=== PATIENT | female | born 1950 | race Caucasian/White ===

== ENCOUNTER → 2017-12-06 | Outpatient (CLI) | payer MEDICARE ==
[~2017-12-06] MED LIST: ACET325 PO; ALBU90OI INH; ASPI325 PO; ATOR10; Antivert25 MG PO; BENZ100A PO; BUSP5 PO; CETI10 PO; CHOLESTEROL MED; CYCL10; DOCU100 PO; DOXY100 PO; FOLI1 PO; HYDACE10A PO; HYDPAM50 PO; Humalog100 UNIT/1 SC; LAMO25 PO; LAMOTRIGINE PO; LEVFLO500 PO; LEVO750 PO; LISI20 PO; LORA1; LORA1 PO; MECL12.5 PO; METF500 PO; MONT4 PO; NAPR500; NAPR500 PO; NICO21TP TOP; NORT10; PRAZ1 PO; PRED20 PO; PRESTIQ PO; ROBITUSSIN NIG237 ML PO; SIMV40 PO
== END ==
LOC: LAB 17:45
DX: L08.89 Other specified local infections of the skin and subcutaneous tissue (principal)
CPT/HCPCS: 87070; 87075; 87077; 87147; 87186; 87205

== ENCOUNTER 2017-12-13 00:24 | Day surgery (SDC) | payer MEDICARE ==
[~2017-12-13 00:24] MED LIST changes: -ACET325 PO; -ALBU90OI INH; -BENZ100A PO; -DOCU100 PO; -FOLI1 PO; -Humalog100 UNIT/1 SC; -LAMO25 PO; -LAMOTRIGINE PO; -LEVO750 PO; -MECL12.5 PO; -MONT4 PO; -NICO21TP TOP; -PRAZ1 PO; -ROBITUSSIN NIG237 ML PO
[2018-08-13] MEDS ORDERED: PRAZ1 PO (17:51)
[2018-08-13] MEDS ORDERED: MONT4 PO (17:52)
[2018-08-13] MEDS ORDERED: ALBU90OI INH (17:52)
[2018-08-13] MEDS ORDERED: LAMOTRIGINE PO (17:53)
[2018-08-13] MEDS ORDERED: FOLI1 PO (22:21)
[2018-08-14] MEDS ORDERED: LAMO25 PO (07:30)
[2018-08-15] MEDS ORDERED: ACET325 PO (19:37)
[2018-08-15] MEDS ORDERED: BENZ100A PO (19:38)
[2018-08-15] MEDS ORDERED: ROBITUSSIN NIG237 ML PO (19:44)
[2018-08-15] MEDS ORDERED: LEVO750 PO (19:45)
[2018-08-15] MEDS ORDERED: DOCU100 PO (19:45)
[2018-08-15] MEDS ORDERED: Humalog100 UNIT/1 SC (19:47)
[2018-08-15] MEDS ORDERED: MECL12.5 PO (19:48)
[2018-08-15] MEDS ORDERED: NICO21TP TOP (19:50)
[2018-08-15] MEDS ORDERED: PRED20 PO (19:51)
== END 2017-12-13 14:16 | disposition home or self-care (01) ==
LOC: WOUND 00:24
PROC: 0JBP0ZZ Excision of Left Lower Leg Subcutaneous Tissue and Fascia, Open Approach (ICD-10-PCS; principal; 2017-12-13)
DX: Z48.00 Encounter for change or removal of nonsurgical wound dressing (principal); S81.052D Open bite, left knee, subsequent encounter; E11.9 Type 2 diabetes mellitus without complications; I10 Essential (primary) hypertension; F17.210 Nicotine dependence, cigarettes, uncomplicated; E66.3 Overweight; Z88.0 Allergy status to penicillin; Z88.8 Allergy status to other drugs, medicaments and biological substances; Z88.1 Allergy status to other antibiotic agents; Z68.28 Body mass index [BMI] 28.0-28.9, adult
CPT/HCPCS: 99406; G0463

== ENCOUNTER 2017-12-20 10:54 | Day surgery (SDC) | payer MEDICARE ==
[2018-08-13] MEDS ORDERED: PRAZ1 PO (17:51)
[2018-08-13] MEDS ORDERED: MONT4 PO (17:52)
[2018-08-13] MEDS ORDERED: ALBU90OI INH (17:52)
[2018-08-13] MEDS ORDERED: LAMOTRIGINE PO (17:53)
[2018-08-13] MEDS ORDERED: FOLI1 PO (22:21)
[2018-08-14] MEDS ORDERED: LAMO25 PO (07:30)
[2018-08-15] MEDS ORDERED: ACET325 PO (19:37)
[2018-08-15] MEDS ORDERED: BENZ100A PO (19:38)
[2018-08-15] MEDS ORDERED: ROBITUSSIN NIG237 ML PO (19:44)
[2018-08-15] MEDS ORDERED: DOCU100 PO (19:45)
[2018-08-15] MEDS ORDERED: LEVO750 PO (19:45)
[2018-08-15] MEDS ORDERED: Humalog100 UNIT/1 SC (19:47)
[2018-08-15] MEDS ORDERED: MECL12.5 PO (19:48)
[2018-08-15] MEDS ORDERED: NICO21TP TOP (19:50)
[2018-08-15] MEDS ORDERED: PRED20 PO (19:51)
== END 2017-12-20 22:54 | disposition home or self-care (01) ==
LOC: WOUND 10:54
DX: Z48.00 Encounter for change or removal of nonsurgical wound dressing (principal); L08.89 Other specified local infections of the skin and subcutaneous tissue; S81.002S Unspecified open wound, left knee, sequela; E11.9 Type 2 diabetes mellitus without complications; I10 Essential (primary) hypertension; F17.210 Nicotine dependence, cigarettes, uncomplicated
CPT/HCPCS: G0463

== ENCOUNTER 2017-12-27 10:40 | Day surgery (SDC) | payer MEDICARE ==
[2018-08-13] MEDS ORDERED: PRAZ1 PO (17:51)
[2018-08-13] MEDS ORDERED: ALBU90OI INH (17:52)
[2018-08-13] MEDS ORDERED: MONT4 PO (17:52)
[2018-08-13] MEDS ORDERED: LAMOTRIGINE PO (17:53)
[2018-08-13] MEDS ORDERED: FOLI1 PO (22:21)
[2018-08-14] MEDS ORDERED: LAMO25 PO (07:30)
[2018-08-15] MEDS ORDERED: ACET325 PO (19:37)
[2018-08-15] MEDS ORDERED: BENZ100A PO (19:38)
[2018-08-15] MEDS ORDERED: ROBITUSSIN NIG237 ML PO (19:44)
[2018-08-15] MEDS ORDERED: DOCU100 PO (19:45)
[2018-08-15] MEDS ORDERED: LEVO750 PO (19:45)
[2018-08-15] MEDS ORDERED: Humalog100 UNIT/1 SC (19:47)
[2018-08-15] MEDS ORDERED: MECL12.5 PO (19:48)
[2018-08-15] MEDS ORDERED: NICO21TP TOP (19:50)
[2018-08-15] MEDS ORDERED: PRED20 PO (19:51)
== END 2017-12-27 23:22 | disposition home or self-care (01) ==
LOC: WOUND 10:40
DX: Z48.00 Encounter for change or removal of nonsurgical wound dressing (principal); L08.89 Other specified local infections of the skin and subcutaneous tissue; S81.002A Unspecified open wound, left knee, initial encounter; E11.9 Type 2 diabetes mellitus without complications; I10 Essential (primary) hypertension; F17.210 Nicotine dependence, cigarettes, uncomplicated
CPT/HCPCS: G0463

== ENCOUNTER 2019-05-22 18:54 | Inpatient (IN) | payer MEDICARE ==
[~2019-05-22] VITALS: Ht 154.9 cm; Wt 75.2 kg
[~2019-05-22 18:54] MED LIST changes: +ACET325 PO; +ALBU90OI INH; +BENZ100A PO; +FOLI1 PO; +Humalog100 UNIT/1 SC; +LAMO25 PO; +LAMOTRIGINE PO; +LEVO750 PO; +LORA.5 PO; -LORA1 PO; +MECL12.5 PO; +MONT10T PO; +NICO21TP TOP; +PRAZ1 PO; +ROBITUSSIN NIG237 ML PO
[2019-05-22 19:15] LABS: BASOPHILS ABSOLUTE AUTO 0.06 K/mm3 (0.00-0.23); BASOPHILS PERCENT AUTO 0 % (0-2); Hematocrit 33.5 % (33.0-51.0); Hemoglobin 10.7 g/dL (11.5-16.0); LYMPHOCYTES ABSOLUTE AUTO 1.77 K/mm3 (0.84-5.20); LYMPHOCYTES PERCENT AUTO 10 % (21-46); MONOCYTES PERCENT AUTO 3 % (4-13); Mean Corpuscular HGB 28.1 pg (26.0-34.0); Mean Corpuscular HGB Conc 31.9 g/dL (31.5-36.5); Mean Corpuscular Volume 88 fL (80-100); Mean Platelet Volume 9.7 fL (9.1-12.4); Platelet Count 286 K/mm3 (150-400); RDW Coefficient Variation 14.6 % (11.7-14.2); RDW Standard Deviation 47.1 fL (35.1-46.3); Red Blood Cell Count 3.81 M/mm3 (3.80-5.20); White Blood Cell Count 17.79 K/mm3 (4.00-11.30)
[2019-05-22 19:16] LABS: EOSINOPHILS ABSOLUTE AUTO 0.02 K/mm3 (0.00-0.68); EOSINOPHILS PERCENT AUTO 0 % (0-6); IMMATURE GRAN ABSOLUTE AUTO 0.93 K/mm3 (0.00-0.10); IMMATURE GRAN PERCENT AUTO 5 % (0-1); NEUTROPHILS ABSOLUTE AUTO 14.41 K/mm3 (1.96-9.15); NEUTROPHILS PERCENT AUTO 81 % (41-73)
[2019-05-22 19:34] LABS: BAND PERCENT MAN 9 % (0-8); BASOPHILS PERCENT MAN 0 % (0-2); EOSINOPHILS ABSOLUTE MAN 0.17 K/mm3 (0.00-0.68); EOSINOPHILS PERCENT MAN 1 % (0-6); LYMPHOCYTES ABSOLUTE MAN 3.02 K/mm3 (0.84-5.20); LYMPHOCYTES PERCENT MAN 17 % (21-46); METAMYELOCYTE ABSOLUTE MAN 0.17 K/mm3 (0.00-0.00); METAMYELOCYTE PERCENT MAN 1 % (0-0); MONOCYTES ABSOLUTE MAN 0.35 K/mm3 (0.16-1.47); MONOCYTES PERCENT MAN 2 % (4-13); NEUTROPHILS ABSOLUTE MAN 14.05 K/mm3 (1.96-9.15); SEG NEUTROPHILS PERCENT MAN 70 % (41-73); TOTAL CELLS COUNTED 100
[2019-05-22 19:41] LABS: Alanine Aminotransfer (ALT/SGP 15 U/L (12-78); Albumin, Blood 2.7 g/dL (3.4-5.0); Albumin/Globulin Ratio 0.8 (0.8-1.8); Alk Phos 77 U/L (50-136); Anion Gap 6 mmol/L (6-16); Aspartate Aminotrans (AST/SGOT 11 U/L (12-37); Bilirubin, Total 0.4 mg/dL (0.1-1.0); Blood Urea Nitrogen 38 mg/dL (8-24); Bun/Creatinine Ratio 36.2 (12.0-20.0); CO2, Blood 25 mmol/L (21-32); Calcium, Blood 8.6 mg/dL (8.5-10.1); Chloride, Blood 105 mmol/L (98-108); Creatinine, Blood 1.05 mg/dL (0.40-1.00); Globulin, Blood 3.6 g/dL (2.2-4.0); Glomerular Filtration Rate 56 (60-); Glucose, Blood 122 mg/dL (70-99); Potassium, Blood 4.2 mmol/L (3.5-5.5); Sodium, Blood 136 mmol/L (136-145); Total Protein, Blood 6.3 g/dL (6.4-8.2); Troponin I <0.015 ng/mL (0.000-0.040)
[2019-05-22 19:54] LABS: Base Excess Venous -1.6 mmol/L; Bicarbonate Venous 22.7 mmol/L (24.0-30.0); PCO2 Venous 43.1 mmHg (38-42); PO2 Venous 42.9 mmHg (38-42); pH Blood Venous 7.35 (7.34-7.37)
[2019-05-22] MEDS ORDERED: VITAMIN D250000 UNIT PO (20:08)
[2019-05-22] MEDS ORDERED: NAPR500 PO (20:26)
[2019-05-22] MEDS ORDERED: Cyclobenzaprine5 MG PO (20:27)
[2019-05-22] MEDS ORDERED: DOCU100 PO (20:43)
[2019-05-22] MEDS ORDERED: CALCIUM 600 +1 EA10 PO (20:44)
--- NOTE | 2019-05-23 01:45 | NUR ---
ADMISSION PT ARRIVES TO [facility] @ APPROXIMATELY 0130 THIS AM. PT IS AOX4 AND AMBULATES WITH STANDBY ASSIST TO RESTROOM AND HOSPITAL BED. PT WITH MILD DYSPNEA ON EXERTION AROUND ROOM- O2 SATS OF 98% ON 2L VIA NASAL CANNULA. RESPIRATIONS ARE SHALLOW AND PT REPORTS SOME DISCOMFORT IN "LUNGS" WITH DEEP INPIRATION. PT ALSO REPORTING PAIN TO BACK THAT IS CHRONIC. LUNG SOUNDS ARE COARSE THROUGHOUT AND DIMINISHED WITH SOME EXPIRATORY WHEEZES TO RUL. PT REPORTS THAT SHE WEARS 2L O2 AT HOME PRN AND IS SUPPOSED TO WEAR A CPAP AT NIGHT THAT SHE IS UNABLE TO TOLERATE. PT ORIENTED TO ROOM AND CALL LIGHT SYSTEM. ENCOURAGED TO CALL FOR ASSISTANCE AND NEEDS. WILL CONTINUE WITH ADMISSION AND MONITORING. BED IN LOW POSITION, CALL LIGHT IN REACH.
--- NOTE | 2019-05-23 02:00 | NUR ---
PROVIDER CONTACTED PT WITH INCREASED LACTIC ACID OF 3.6 THAT WAS CALLED TO SHREDDER TENDER PEAT PRIOR TO PATIENT ARRIVAL. PT ALOS REPORTING INCREASING BACK PAIN THAT IS MANAGED WITH MEDICATION AT HOME. DR FRANKS CONTACTED AND INFORMED OF LACTIC ACID RESULTS- NO ORDERS RECEIVED FOR THIS. ORDERS RECEIVED FOR PAIN MEDICATION. WILL INPUT ORDERS AND ADMINISTER.
[2019-05-23] MEDS ORDERED: CALCIUM CIT 311 EACH PO ×2 (02:47→02:48)
[2019-05-23 04:21] LABS: BASOPHILS ABSOLUTE AUTO 0.04 K/mm3 (0.00-0.23); BASOPHILS PERCENT AUTO 0 % (0-2); Hematocrit 31.9 % (33.0-51.0); Hemoglobin 9.9 g/dL (11.5-16.0); LYMPHOCYTES ABSOLUTE AUTO 1.11 K/mm3 (0.84-5.20); LYMPHOCYTES PERCENT AUTO 10 % (21-46); MONOCYTES ABSOLUTE AUTO 0.37 K/mm3 (0.16-1.47); MONOCYTES PERCENT AUTO 3 % (4-13); Mean Corpuscular HGB 28.3 pg (26.0-34.0); Mean Platelet Volume 10.1 fL (9.1-12.4); Platelet Count 216 K/mm3 (150-400); RDW Coefficient Variation 14.7 % (11.7-14.2); RDW Standard Deviation 49.1 fL (35.1-46.3); White Blood Cell Count 11.68 K/mm3 (4.00-11.30)
[2019-05-23 04:31] LABS: EOSINOPHILS ABSOLUTE AUTO 0.01 K/mm3 (0.00-0.68); EOSINOPHILS PERCENT AUTO 0 % (0-6); IMMATURE GRAN ABSOLUTE AUTO 1.17 K/mm3 (0.00-0.10); IMMATURE GRAN PERCENT AUTO 10 % (0-1); Mean Corpuscular Volume 91 fL (80-100); NEUTROPHILS ABSOLUTE AUTO 8.98 K/mm3 (1.96-9.15); NEUTROPHILS PERCENT AUTO 77 % (41-73)
[2019-05-23 04:39] LABS: Anion Gap 9 mmol/L (6-16); Blood Urea Nitrogen 31 mg/dL (8-24); Bun/Creatinine Ratio 35.2 (12.0-20.0); CO2, Blood 22 mmol/L (21-32); Calcium, Blood 7.9 mg/dL (8.5-10.1); Chloride, Blood 109 mmol/L (98-108); Creatinine, Blood 0.88 mg/dL (0.40-1.00); Glomerular Filtration Rate >60 (60-); Glucose, Blood 138 mg/dL (70-99); Potassium, Blood 4.2 mmol/L (3.5-5.5); Sodium, Blood 140 mmol/L (136-145)
[2019-05-23 05:08] LABS: BAND PERCENT MAN 10 % (0-8); BASOPHILS PERCENT MAN 0 % (0-2); EOSINOPHILS PERCENT MAN 0 % (0-6); LYMPHOCYTES PERCENT MAN 12 % (21-46); MONOCYTES ABSOLUTE MAN 0.23 K/mm3 (0.16-1.47); MONOCYTES PERCENT MAN 2 % (4-13); NEUTROPHILS ABSOLUTE MAN 10.04 K/mm3 (1.96-9.15); SEG NEUTROPHILS PERCENT MAN 76 % (41-73); TOTAL CELLS COUNTED 100
--- NOTE | 2019-05-23 06:07 | NUR ---
SHIFT SUMMARY PT HAS REMAINED AOX4 THROUGHOUT REMAINDER OF SHIFT. VSS. PLEASANT AND COOPERATIVE WITH CARE. PT WITH ANXIETY THIS AM AFTER AMBULATION. CONTINUES TO REPORT PAIN TO BACK AND R LUNG AREA THAT HURTS WHEN PATIENT IS DYSPNEIC. PT REPORTS DECREASE IN PAIN WITH REPOSITIONING AND ORDERED MEDICATIONS- PT PROVIDED WITH KPAD FOR HEAT THERAPY IN ADDITION TO OTHER INTERVENTIONS. PT APPEARS TO BE SLEEPING WITHIN 5 MINUTES OF REPOSITIONING AND HEAT APPLICATION. O2 SATS HAVE REMAINED >90% ON 2L VIA NASAL CANNULA. NO OTHER CHANGES NOTED FROM INITIAL ASSESSMENT. WILL CONTINUE TO MONITOR AND REPORT TO ONCOMING SHIFT RN. BED IN LOW POSITION,CALL LIGHT IN REACH.
--- NOTE | 2019-05-23 07:54 | NUR ---
AM NOTE. ASSUMED CARE OF PT APROX 0700, PT IS A&Ox4 AND SBA IN THE ROOM. PT WAS ADMITTED FOR PNA, PT HAS CHRONIC PAIN ISSUES WELL. PT IS FEBRILE AT 100.2, PT'S SINUS TACH IN THE 100'S, PT'S BP STABLE. L/S COARSE AND DIM T/O, ON 1L NC WITH O2 AT 96%. PT STATES SHE HAS CHEST PAIN WITH BREATHING AND COUGHING. NO EDEMA IS NOTED ON ASSESSMENT. CALL LIGHT IN REACH, BED IS LOCKED AND LOW WILL CONTINUE TO MONITOR.
--- NOTE | 2019-05-23 18:07 | NUR ---
PATIENT HAS HAD COMPLAINTS OF NAUSEA. MEDICATED PER EMAR. FAMILY AT BEDSIDE. SALINE LOCKED AT THIS TIME. EATING MINIMAL AMOUNTS OF FOOD. STATES PASSING GAS, HAS HAD A BM TODAY. NO OTHER ISSUES NOTED.
--- NOTE | 2019-05-24 05:54 | NUR ---
SHIFT SUMMARY PT REPORTS BEING "JUST MISERABLE" TONIGHT. PT IS NAUSEAS FROM ABX, NOT RELIEVED BY ZOFRAN. PO PHENERGAN ORDERED Q6H HAS BEEN WORKING THE BEST. PT IS ALSO VERY PAINFUL, C/O OF PAIN TO ABD, SHOULDERS, AND BACK. ADMINISTERING 50 MCG FENTANYL Q4H PER ORDERS, PROVIDES SOME RELIEF. PT IS ALSO QUITE ANXIOUS, HAS RECIEVED PRN 0.5 MG PO ATIVAN TWICE TONIGHT. TOOK PT ON A WALK AROUND THE HALLS WHICH HELPED RELIEVE ANXIETY AND PT WAS ABLE TO FALL ASLEEP FOR A FEW HRS AFTERWARDS. ABX ADMINISTERED PER ORDERS. NO OTHER CHANGES TO REPORT. WILL CONT TO MONITOR AND PROVIDE CARE UNTIL PRESUMED BY ONCOMING RN.
[2019-05-24 11:42] LABS: Vancomycin, Trough 11.7 ug/mL (5.0-10.0)
[2019-05-24] MEDS ORDERED: PROM25 PO (13:49)
[2019-05-24] MEDS ORDERED: LEVFLO500 PO (13:50)
--- NOTE | 2019-05-24 14:17 | NUR ---
PATIENT DISCHARGED WITH DAUGHTER. MEDS FAXED TO [facility] IN [place]. PATIENT WHEELED OUT IN W/C BY KAVON LEWIS.
== END 2019-05-24 14:11 | disposition home or self-care (01) | DRG 871 ==
LOC: ER 18:54 → PCU 21:16 → MEDS 05-23 15:00
PROVIDERS: Emergency Medicine; Hospitalist; Nurse Practitioner Acute Care; ADMIT Internal Medicine
DX: A40.3 Sepsis due to Streptococcus pneumoniae (principal); R65.20 Severe sepsis without septic shock; J96.21 Acute and chronic respiratory failure with hypoxia; J18.1 Lobar pneumonia, unspecified organism; J44.0 Chronic obstructive pulmonary disease with (acute) lower respiratory infection; E11.9 Type 2 diabetes mellitus without complications; I10 Essential (primary) hypertension; E03.9 Hypothyroidism, unspecified; M79.7 Fibromyalgia; G47.33 Obstructive sleep apnea (adult) (pediatric); F41.1 Generalized anxiety disorder; F32.9 Major depressive disorder, single episode, unspecified; Z87.891 Personal history of nicotine dependence; Z88.0 Allergy status to penicillin; Z88.8 Allergy status to other drugs, medicaments and biological substances; Z79.84 Long term (current) use of oral hypoglycemic drugs; Z79.899 Other long term (current) drug therapy
CPT/HCPCS: 36415; 71046; 80048; 80053; 80202; 82803; 82947; 83605; 83735; 83880; 84484; 85025; 87040; 87186; 87449; 93005; 93010; 94640; 94760; 96365; 96366; 96367; 96372-59; 96375; 96376; 99285-25; A9270; J0696; J1170; J1650; J1956; J2405; J3010; J3370; J7030; J7050

== ENCOUNTER → 2019-08-23 | Outpatient (CLI) | payer MEDICARE ==
[~2019-08-23] MED LIST changes: +CALCIUM 600 +1 EA10 PO; +CALCIUM CIT 311 EACH PO; +Cyclobenzaprine5 MG PO; +DOCU100 PO; +PROM25 PO; +VITAMIN D250000 UNIT PO
[2019-08-25 14:38] LABS: Stool Occult Bld Immuno 1 Positive (NEGATIVE)
== END | disposition home or self-care (01) ==
LOC: LAB SHORT 15:00 → LAB 15:00
PROVIDERS: Nurse Practitioner Family
DX: Z12.11 Encounter for screening for malignant neoplasm of colon (principal)
CPT/HCPCS: G0328

== ENCOUNTER 2019-11-23 11:18 | Day surgery (SDC) | payer MEDICARE ==
[~2019-11-23] VITALS: Ht 154.9 cm; Wt 73.0 kg
[~2019-11-23 11:18] MED LIST changes: +BUPROPION XL150 M1 PO; +CYCL10 PO; +Duoneb 2.5-0.5 M3 ML INH; +Flovent 220 Ora12 GM INH; +LIDO700A20 TOP; +Lamictal150 MG; +OYSTER SHELL 51 EACH PO; +Ventolin/Prove6.7 GM INH; +ZYRTEC10 M2 PO; +Zocor40 MG PO
== END 2019-11-23 14:08 | disposition home or self-care (01) ==
LOC: ORSCSDS 11:18
PROVIDERS: Internal Medicine Gastroenterology
PROC: 0DJD8ZZ Inspection of Lower Intestinal Tract, Via Natural or Artificial Opening Endoscopic (ICD-10-PCS; principal; 2019-11-23 12:30)
DX: K92.1 Melena (principal); K57.30 Diverticulosis of large intestine without perforation or abscess without bleeding; K64.8 Other hemorrhoids; F41.8 Other specified anxiety disorders; E78.5 Hyperlipidemia, unspecified; D64.9 Anemia, unspecified; I10 Essential (primary) hypertension; E66.9 Obesity, unspecified; Z68.30 Body mass index [BMI] 30.0-30.9, adult; J44.9 Chronic obstructive pulmonary disease, unspecified; Z99.81 Dependence on supplemental oxygen; E11.9 Type 2 diabetes mellitus without complications; Z87.891 Personal history of nicotine dependence; Z79.82 Long term (current) use of aspirin; Z79.84 Long term (current) use of oral hypoglycemic drugs; Z79.899 Other long term (current) drug therapy
CPT/HCPCS: 82947; J2704; J7120

== ENCOUNTER → 2021-11-13 | Outpatient (CLI) | payer MEDICARE ==
[2021-11-13 15:12] LABS: Creatinine, Urine Random 53.1 mg/dL (27.00-270.00)
[2021-11-13 15:27] LABS: Microalb/Creat Ratio UR, Rand 36.158 mg/g (0.000-30.000); Microalbumin, Random Urine 19.2 mg/L (0.000-20.000)
[2021-11-13 15:42] LABS: BASOPHILS ABSOLUTE AUTO 0.02 K/mm3 (0.00-0.23); BASOPHILS PERCENT AUTO 0 % (0-2); EOSINOPHILS ABSOLUTE AUTO 0.15 K/mm3 (0.00-0.68); EOSINOPHILS PERCENT AUTO 2 % (0-6); Hematocrit 41.4 % (33.0-51.0); Hemoglobin 13.1 g/dL (11.5-16.0); IMMATURE GRAN ABSOLUTE AUTO 0.01 K/mm3 (0.00-0.10); IMMATURE GRAN PERCENT AUTO 0 % (0-1); LYMPHOCYTES ABSOLUTE AUTO 2.97 K/mm3 (0.84-5.20); LYMPHOCYTES PERCENT AUTO 44 % (21-46); MONOCYTES PERCENT AUTO 5 % (4-13); Mean Corpuscular HGB 26.6 pg (26.0-34.0); Mean Corpuscular HGB Conc 31.6 g/dL (31.5-36.5); Mean Corpuscular Volume 84 fL (80-100); Mean Platelet Volume 10.7 fL (9.1-12.4); NEUTROPHILS ABSOLUTE AUTO 3.27 K/mm3 (1.96-9.15); NEUTROPHILS PERCENT AUTO 49 % (41-73); Platelet Count 319 K/mm3 (150-400); RDW Coefficient Variation 14.2 % (11.7-14.2); RDW Standard Deviation 43.6 fL (35.1-46.3); Red Blood Cell Count 4.93 M/mm3 (3.80-5.20); White Blood Cell Count 6.72 K/mm3 (4.00-11.30)
[2021-11-14 09:10] LABS: A/G RATIO 1.6 (1.2-2.2); ALKALINE PHOSPHATASE, S 98 IU/L (44-121); ALT (SGPT) 15 IU/L (0-32); AST (SGOT) 17 IU/L (0-40); BILIRUBIN, TOTAL 0.3 mg/dL (0.0-1.2); BUN 8 mg/dL (8-27); BUN/CREATININE RATIO 13 (12-28); CALCIUM, SERUM 9.3 mg/dL (8.7-10.3); CARBON DIOXIDE, TOTAL 29 mmol/L (20-29); CHLORIDE, SERUM 100 mmol/L (96-106); CHOLESTEROL, TOTAL 222 mg/dL (100-199); CREATININE, SERUM 0.64 mg/dL (0.57-1.00); EGFR IF AFRICN AM 105 (>59); EGFR IF NONAFRICN AM 91 (>59); GLOBULIN, TOTAL 2.6 g/dL (1.5-4.5); GLUCOSE, SERUM 159 mg/dL (65-99); HDL CHOLESTEROL 37 mg/dL (>39); LDL CHOLESTEROL CALC 134 mg/dL (0-99); POTASSIUM, SERUM 4.2 mmol/L (3.5-5.2); PROTEIN, TOTAL, SERUM 6.8 g/dL (6.0-8.5); SODIUM, SERUM 142 mmol/L (134-144); TRIGLYCERIDES 281 mg/dL (0-149); VLDL CHOLESTEROL CAL 51 mg/dL (5-40)
[2021-11-14 19:10] LABS: T-TRANSGLUTAMINASE (TTG) IGA 4 U/mL (0-3); T-TRANSGLUTAMINASE (TTG) IGG <2 U/mL (0-5)
== END ==
LOC: LAB SHORT 12:21
PROVIDERS: Family Medicine
DX: E11.40 Type 2 diabetes mellitus with diabetic neuropathy, unspecified (principal); Z79.84 Long term (current) use of oral hypoglycemic drugs
CPT/HCPCS: 80053; 80061; 82043; 82570; 83036; 83516; 83690; 84443; 85025; 86364

== ENCOUNTER 2022-06-30 16:27 | Inpatient (IN) | payer OTHER ==
[~2022-06-30] VITALS: Ht 154.9 cm; Wt 79.5 kg
[2022-06-30 17:31] LABS: Hemoglobin 11.8 g/dL (11.5-16.0); Mean Corpuscular HGB 27.3 pg (26.0-34.0); Mean Corpuscular HGB Conc 31.9 g/dL (31.5-36.5); Mean Corpuscular Volume 86 fL (80-100); Mean Platelet Volume 10.3 fL (9.1-12.4); Platelet Count 263 K/mm3 (150-400); RDW Coefficient Variation 13.8 % (11.7-14.2); RDW Standard Deviation 43.3 fL (35.1-46.3); Red Blood Cell Count 4.33 M/mm3 (3.80-5.20); White Blood Cell Count 8.08 K/mm3 (4.00-11.30)
[2022-06-30 17:44] LABS: Albumin, Blood 2.7 g/dL (3.4-5.0); Albumin/Globulin Ratio 0.8 (0.8-1.8); Bilirubin, Total 0.5 mg/dL (0.1-1.0); Bun/Creatinine Ratio 14.8 (12.0-20.0); Calcium, Blood 8.6 mg/dL (8.5-10.1); Creatinine, Blood 1.35 mg/dL (0.40-1.00); Globulin, Blood 3.2 g/dL (2.2-4.0); Magnesium, Blood 1.2 mg/dL (1.6-2.4); Total Protein, Blood 5.9 g/dL (6.4-8.2)
[2022-06-30 18:20] LABS: BAND PERCENT MAN 26 % (0-8); BASOPHILS ABSOLUTE MAN 0.08 K/mm3 (0.00-0.23); BASOPHILS PERCENT MAN 1 % (0-2); EOSINOPHILS PERCENT MAN 0 % (0-6); LYMPHOCYTES ABSOLUTE MAN 1.21 K/mm3 (0.84-5.20); LYMPHOCYTES PERCENT MAN 15 % (21-46); METAMYELOCYTE ABSOLUTE MAN 0.24 K/mm3 (0.00-0.00); METAMYELOCYTE PERCENT MAN 3 % (0-0); MONOCYTES ABSOLUTE MAN 0.64 K/mm3 (0.16-1.47); MONOCYTES PERCENT MAN 8 % (4-13); NEUTROPHILS ABSOLUTE MAN 5.89 K/mm3 (1.96-9.15); SEG NEUTROPHILS PERCENT MAN 47 % (41-73); TOTAL CELLS COUNTED 100
--- NOTE | 2022-06-30 21:14 | NUR ---
TRANSFER NOTE REPORT FROM LIANE MASON RN. PT TO ROOM BY JUAN MANUEL AND SLID TO BED. ORIENTED TO ROOM AND CALL LIGHT. CALL LIGHT IN REACH, BED IN LOWEST POSITION.
[2022-06-30 21:31] LABS: Influenza A, PCR NEGATIVE (NEGATIVE); Influenza B, PCR NEGATIVE (NEGATIVE); Resp Syncytial Virus, PCR NEGATIVE (NEGATIVE); SARS-Cov-2 (COVID-19) PCR, MMC NEGATIVE (NEGATIVE)
--- NOTE | 2022-07-01 01:38 | NUR ---
PT REFUSING TO WEAR CPAP DUE TO HER HISTORY OF CLAUSTROPHOBIA. SATTING >92% ON RA. NO WORSENING SOB AT THIS TIME.
[2022-07-01 02:39] LABS: Hemoglobin 11.1 g/dL (11.5-16.0); Mean Corpuscular HGB 27.1 pg (26.0-34.0); Mean Corpuscular HGB Conc 31.7 g/dL (31.5-36.5); Mean Corpuscular Volume 86 fL (80-100); Mean Platelet Volume 9.9 fL (9.1-12.4); Platelet Count 243 K/mm3 (150-400); RDW Standard Deviation 43.8 fL (35.1-46.3); Red Blood Cell Count 4.09 M/mm3 (3.80-5.20); White Blood Cell Count 9.16 K/mm3 (4.00-11.30)
[2022-07-01 02:55] LABS: Bun/Creatinine Ratio 21.3 (12.0-20.0); Creatinine, Blood 0.99 mg/dL (0.40-1.00); Potassium, Blood 4.6 mmol/L (3.5-5.5)
[2022-07-01 03:24] LABS: BAND PERCENT MAN 40 % (0-8); BASOPHILS PERCENT MAN 0 % (0-2); EOSINOPHILS PERCENT MAN 0 % (0-6); LYMPHOCYTES PERCENT MAN 11 % (21-46); METAMYELOCYTE ABSOLUTE MAN 0.09 K/mm3 (0.00-0.00); METAMYELOCYTE PERCENT MAN 1 % (0-0); MONOCYTES ABSOLUTE MAN 0.73 K/mm3 (0.16-1.47); MONOCYTES PERCENT MAN 8 % (4-13); MYELOCYTE ABSOLUTE MAN 0.09 K/mm3 (0.00-0.00); MYELOCYTE PERCENT MAN 1 % (0-0); NEUTROPHILS ABSOLUTE MAN 7.23 K/mm3 (1.96-9.15); SEG NEUTROPHILS PERCENT MAN 39 % (41-73); TOTAL CELLS COUNTED 100
--- NOTE | 2022-07-01 05:28 | NUR ---
COOK MAYONNAISE SUMMARY ADMITTED FOR PNA. PT TROPONIN CONTINUING TO ELEVATE. NO COMPLAINTS OF CHEST PAIN BUT DOES COMPLAIN OF ANXIETY. MANAGED WITH REDIRECTION AND REST AT THIS TIME. SHE HAS SOB ON EXERTION BUT SATTING >92% ON RA. LACTIC ELEVATED - CONTINUING IV FLUIDS. TELE HAS BEEN SINUS TACH THROUGHOUT THE SHIFT. ONE DOSE OF IV ABX GIVEN. IV MAG GIVEN. PT IS ALERT AND ORIENTED. FOLLOWS DIRECTIONS. PAIN TO THE RIGHT LATERAL RIB AREA - MEDICATED X1 - PAIN IS WORSE WHEN MOVING AROUND. CONSULT FOR CARDIOLOGY CALLED FOR THIS MORNING.
[2022-07-01 06:55] LABS: Bicarbonate Venous 23.3 mmol/L (24.0-30.0); PCO2 Venous 32.7 mmHg (38-42); pH Blood Venous 7.44 (7.34-7.37)
--- NOTE | 2022-07-01 08:51 | NUR ---
Pt restless, anxious, and c/o pain in the abdomen and in her back. No dyspnea. Spo2 95% on room air. Blood pressure stable. Given 25 Fentanyl and EKG done, no EKG changes noted. Labs sent for troponin, PTT to start heparin gtt and lactic reflex. Powerglide placed on the left arm; lab had difficulty drawing earlier.
--- NOTE | 2022-07-01 08:53 | NUR ---
Pt is less anxious and less restless at this time. Med student with her. Daughter Ashlee has just arrived at bedside.
[2022-07-01 09:12] LABS: Anti-Xa UFH, PHA Monitoring <0.10 IU/mL; International Normalized Ratio 1.69; Prothrombin Time Results 17.1 Sec (9.7-11.5)
--- NOTE | 2022-07-01 09:50 | NUR ---
Dr. Gonzales here to see the patient at this time. Plan is for Echocardiogram and continue to monitor the patient. Lactic acid noted improved from last check. still waiting on most recent troponin.
--- NOTE | 2022-07-01 10:05 | NUR ---
Assisted up to the bedside commode to have a BM. She tolerated the activity very well.
--- NOTE | 2022-07-01 10:53 | NUR ---
Call to Dr. Forde regarding pt's intermittent hallucinations. Daughter Ashlee reports the pt has had these symptoms when she withdraws from her meds. Pt normally takes ativan 0.5 mg tid as well as fluvoxamine maleate 25 mg.
[2022-07-01] MEDS ORDERED: FLUV50 PO (10:54)
--- NOTE | 2022-07-01 11:44 | NUR ---
The pt denies any alcohol intake. One time CIWA assessment done at Dr. Forde's request. Score is 7. Ativan was given p.o. per new orders.
--- NOTE | 2022-07-01 12:44 | NUR ---
Pt is a little less agitated. Daughter at bedside, calming presence and helpful and supportive of pt. Warm blankets provided as requested, lights in room dimmed. Heart rate 105 , sinus.
--- NOTE | 2022-07-01 13:22 | NUR ---
Pt had another episode of visual hallucinations and confusion, this time witnessed by staff. It lasted only a few minutes. Pt is still agitated, restless. Call to Dr. Edwards and new order received for one time 0.5 mg oral ativan. Daughter remains at bedside. continuous oximetry and telemetry monitoring.
--- NOTE | 2022-07-01 14:13 | NUR ---
Pt is alert and oriented to person, place and date/time. Continues to be restless, anxious. Sitting up in recliner, rocking back and forth, moving arms and legs and repostioning very frequently. Spo2 95% on room air. Heart rate 105, sinus tachycardia without ectopy. Deies any pain, states she is just anxious. STates it is the same level of anxiety that she usually experiences at home.
--- NOTE | 2022-07-01 17:45 | NUR ---
Pt is still occasionally confused, mildly, but mentation much improved her daughter reports since around 4 pm. Her restlessness and anxiety are also slightly better since this morning. Occasionally c/o abdominal pain. She has not had a good appetite today. Multiple times she has mentioned that she wishes she could be less anxious. She has been up to the bedside commode several times to void and twice to have BMs.
[2022-07-02 04:17] LABS: Hematocrit 29.7 % (33.0-51.0); Hemoglobin 9.7 g/dL (11.5-16.0); Mean Corpuscular HGB 26.8 pg (26.0-34.0); Mean Corpuscular HGB Conc 32.7 g/dL (31.5-36.5); Mean Corpuscular Volume 82 fL (80-100); Platelet Count 251 K/mm3 (150-400); RDW Coefficient Variation 13.9 % (11.7-14.2); RDW Standard Deviation 41.5 fL (35.1-46.3); Red Blood Cell Count 3.62 M/mm3 (3.80-5.20)
[2022-07-02 04:39] LABS: Bun/Creatinine Ratio 20.1 (12.0-20.0); Calcium, Blood 8.3 mg/dL (8.5-10.1); Creatinine, Blood 0.7 mg/dL (0.40-1.00); Potassium, Blood 3.7 mmol/L (3.5-5.5)
[2022-07-02 04:49] LABS: BAND PERCENT MAN 18 % (0-8); BASOPHILS ABSOLUTE MAN 0.16 K/mm3 (0.00-0.23); BASOPHILS PERCENT MAN 1 % (0-2); EOSINOPHILS ABSOLUTE MAN 0.16 K/mm3 (0.00-0.68); EOSINOPHILS PERCENT MAN 1 % (0-6); LYMPHOCYTES ABSOLUTE MAN 1.28 K/mm3 (0.84-5.20); LYMPHOCYTES PERCENT MAN 8 % (21-46); METAMYELOCYTE ABSOLUTE MAN 0.16 K/mm3 (0.00-0.00); METAMYELOCYTE PERCENT MAN 1 % (0-0); MONOCYTES ABSOLUTE MAN 0.64 K/mm3 (0.16-1.47); MONOCYTES PERCENT MAN 4 % (4-13); MYELOCYTE ABSOLUTE MAN 0.16 K/mm3 (0.00-0.00); MYELOCYTE PERCENT MAN 1 % (0-0); NEUTROPHILS ABSOLUTE MAN 13.44 K/mm3 (1.96-9.15); SEG NEUTROPHILS PERCENT MAN 66 % (41-73); TOTAL CELLS COUNTED 100
--- NOTE | 2022-07-02 05:05 | NUR ---
VERIFIED HEPARIN WITH ALLI BRAUN
--- NOTE | 2022-07-02 06:30 | NUR ---
SHIFT SUMMARY PT HAD A DIFFICULT NIGHT WITH INCREASING CONFUSION AND RESTLESSNESS. PT IS ACTIVILY HAVING AUDITORY VISUAL, AND TACTILE HALLUCINATIONS WHICH HAVE SEEM TO INCREASE THROUGH OUT SHIFT. PT WAS AWARE THEY WERE HALLUCINATING STARTING MY SHIFT NOW PT IS AGUMENTIVE ABOT ORRIENTATION QUESTIONS. PT HAD A PT OF NAUSE AND VOMITING. THINKL RELATED TO FENT ADMIN. IS PT WITHDRAWING FROM SOMETHING OTHER THEN BENZOS BECAUSE SIMPTOMS ARE INCREASING EVEN WITH HOME ATIVAN DOSE. IM ALSO CONCERNED THE FENT PRN DOSES MIGHT BE INCREASING DELERIUM. WILL REPORT OFF TH ON COMING RN.
--- NOTE | 2022-07-02 07:50 | NUR ---
SPOKE WITH DR. EARL THIS MORNING. PATIENT DOES NOT NEED STRESS TEST AND OKAY TO EAT.
--- NOTE | 2022-07-02 11:00 | NUR ---
AM NOTE: PATIENT VERY CONFUSED, ANXIOUS, AND AGGITATED. ABLE TO ANSWER ALL ORIENTING QUESTIONS, YET TALKING TO PEOPLE THAT ARE NOT IN THE ROOM, AND SAYING NONSENSICAL STATEMENTS. CONSTANTLY UP AND DOWN, NOT ABLE TO SETTLE OR REST. BED ALARM IN PLACE. GRANDDAUGHTER AT BEDSIDE. THIS RN CALLED DR. ROBERTO TO UPDATE ON ANXIOUS STATE. NO NEW ORDERS FOR THIS RN TO PLACE. ON ROOM AIR LUNGS SOUNDING CLEAR AND DIM, STARTS TO GET WHEEZY WITH ANXIETY AND AGGITATION. RESPIRATORY IN FOR BREATHING TREATMENTS. TELE SHOWING SR-ST WITH HR 90-110'S. DENIES CHEST PAIN/PRESSURE. BP STABLE. NO SIGNS OF EDEMA. HEPARIN GTT INFUSING. CARDIOLOGY IN TO SEE PATIENT. MED MANAGE. WILL PLAN TO BE ON HEPARIN GTT FOR [address] EARL. UP TO BSC. DENIES ABDOMINAL PAIN. ONE EPISODE OF EMISIS THIS AM WHILE EATING BREAKFAST. DENIES NEEDS FOR ZOFRAN. SMALL FREQUENT BOWL MOVEMENTS THAT ARE DARK/GREEN/BLACK. OCCULT STOOL SAMPLE SENT. LR INFUSING AT 100 ML/HR. ACHS BLOOD SUGAR CHECKS. CALL LIGHT IN REACH. SAFETY ALARMS IN PLACE. WILL CONTINUE TO MONITOR.
--- NOTE | 2022-07-02 12:49 | NUR ---
PATIENT HAS CALMED DOWN AND ANXIETY BETTER CONTROLLED WITH ADDITIONAL 1MG PO DOSE OF ATIVAN X1 THIS AFTERNOON. PATIENT REMAINS CONFUSED, TALKING TO SELF AND HAVING HALLUCINATIONS. BED ALARM IN PLACE. NOT USING CALL LIGHT. SETTING BED ALARM OFF CONTINUALLY. THIS RN SITTING OUTSIDE OF ROOM TO WATCH PATIENT AND BE CLOSER. LR AND HEPARIN CONTINUE TO INFUSE. VERY MINIMAL URINE OUTPUT THIS SHIFT, BLADDER SCAN DONE ONLY SHOWING 80 ML. WILL CONTINUE TO MONITOR.
[2022-07-02 13:23] LABS: Stool Occult Blood Guaiac 1 Pos (Neg)
--- NOTE | 2022-07-02 13:29 | NUR ---
SPOKE WITH DR. ROBERTO REGARDING STOOL OCCULT RESULTS. NO NEW ORDERS FOR THIS RN AT THIS TIME. ALSO UPDATED ON MENTATION AND CONFUSION. NO NEW ORDERS. THIS RN WILL CONTINUE TO MONITOR. PATIENT CALLING OUT FOR FAMILY MEMEBERS AND IRRITATED AT STAFF WHEN REORIENTING. BED ALARM IN PLACE. WILL CONTINUE TO MONITOR.
--- NOTE | 2022-07-02 16:17 | NUR ---
PATIENT NOT ABLE TO REST, REMAINS CONFUSED, AGGITATED, AND HALLUCINATING. TRYING TO GET OUT OF BED MULTIPLE TIMES. CALL PLACED TO DR. CHAUDHRY, NEW ORDERS FOR SEROQUEL. WILL ADMINISTER AND CONTINUE TO MONITOR. DAUGHTER DANIEL CALLED BACK AND UPDATED. BED ALARM REMAINS ON. WILL CONTINUE TO MONITOR.
--- NOTE | 2022-07-02 18:22 | NUR ---
SHIFT SUMMARY: SEE PREVIOUS NOTES FOR UPDATES THROUGHOUT SHIFT. PATIENT REMAINS CONFUSED, HALLUCINATING AND TRYING TO GET OUT OF BED, BED ALARM IN PLACE. PO SEROQUEL GIVEN WITH LITTLE EFFECT. PATIENT REMAINS AGGITATED WITH STAFF WHEN HELPING GET BACK IN BED. TALKING ABOUT PEOPLE THAT ARE NOT IN ROOM AND DISCUSSING DOGS AND CATS THAT ARE NOT IN ROOM WELL. REMAINS ON ROOM AIR. TELE CONTINUES TO SHOW SR-ST. WITH HR 90-110'S. HEPARIN DRIP CONTINUES WELL LR INFUSION. PATIENT DENIES WANTING TO EAT DINNER THIS EVENING. RESPIRATORY IN WITH BREATHING TREATMENTS, ALTHOUGH PATIENT NOT FOLLOWING DIRECTIONS. BP REMAINS STABLE. SPOKE WITH DAUGHTER DANIEL AND UPDATED. WILL CONTINUE TO MONITOR AND REPORT OFF TO ONCOMING RN.
--- NOTE | 2022-07-02 19:21 | NUR ---
UPDATE: PATIENT NOTED TO BE MORE WHEEZY, FINE CRACKLES IN BASES. CALL PLACED BY OPERATIONS DEVELOPER TO DR. CHAUDHRY. ORDERS TO DC FLUIDS AND ONE TIME DOSE IV LASIX. PATIENT STILL TRYING TO GET UP AND NOT FOLLOWING DIRECTIONS. ORDER FOR HIPOLITO VEST. HIPOLITO VEST IN PLACE. REPORTED OFF TO ONCOMING RN. HEPARIN DRIP VERIFIED.
[2022-07-02 21:45] LABS: PCO2 Arterial 39.2 mmHg (35-45); PO2 Arterial 59.8 mmHg (80-100); pH Blood Arterial 7.48 (7.35-7.45)
[2022-07-03 04:24] LABS: BASOPHILS ABSOLUTE AUTO 0.05 K/mm3 (0.00-0.23); BASOPHILS PERCENT AUTO 0 % (0-2); EOSINOPHILS ABSOLUTE AUTO 0.08 K/mm3 (0.00-0.68); EOSINOPHILS PERCENT AUTO 0 % (0-6); Hematocrit 28.4 % (33.0-51.0); Hemoglobin 9.3 g/dL (11.5-16.0); IMMATURE GRAN ABSOLUTE AUTO 0.12 K/mm3 (0.00-0.10); IMMATURE GRAN PERCENT AUTO 1 % (0-1); LYMPHOCYTES ABSOLUTE AUTO 2.32 K/mm3 (0.84-5.20); LYMPHOCYTES PERCENT AUTO 13 % (21-46); MONOCYTES ABSOLUTE AUTO 0.78 K/mm3 (0.16-1.47); MONOCYTES PERCENT AUTO 4 % (4-13); Mean Corpuscular HGB 27.1 pg (26.0-34.0); Mean Corpuscular HGB Conc 32.7 g/dL (31.5-36.5); Mean Corpuscular Volume 83 fL (80-100); Mean Platelet Volume 10.2 fL (9.1-12.4); NEUTROPHILS ABSOLUTE AUTO 14.65 K/mm3 (1.96-9.15); NEUTROPHILS PERCENT AUTO 81 % (41-73); Platelet Count 294 K/mm3 (150-400); RDW Coefficient Variation 14.1 % (11.7-14.2); RDW Standard Deviation 42.9 fL (35.1-46.3); Red Blood Cell Count 3.43 M/mm3 (3.80-5.20)
[2022-07-03 04:42] LABS: Albumin/Globulin Ratio 0.6 (0.8-1.8); Bilirubin, Total 0.3 mg/dL (0.1-1.0); Bun/Creatinine Ratio 25.9 (12.0-20.0); Calcium, Blood 8.1 mg/dL (8.5-10.1); Creatinine, Blood 0.7 mg/dL (0.40-1.00); Globulin, Blood 3.4 g/dL (2.2-4.0); Potassium, Blood 3.5 mmol/L (3.5-5.5); Total Protein, Blood 5.4 g/dL (6.4-8.2)
--- NOTE | 2022-07-03 05:04 | NUR ---
SHIFT SUMMARY PATIENT BEGAN THE SHIFT CONFUSED-ORIENTED TO SELF ONLY. ORIENTATION GRADUALLY IMPROVED T/O SHIFT. NOW ORIENTED TO SELF AND TIME-STATES SHE IS IN [place]. PATIENT IS INCONTINENT AND WITH LASIX GIVEN PRIOR TO SHIFT CHANGE, GREER CATHETER PLACED TO PREVENT SKIN BREAKDOWN. PATIENT WAS ABLE TO DISROBE FROM HIPOLITO VEST RESTRAINT AND BEGAN PULLING AT LINES/CLIMBING OUT OF BED. ORDERS GIVEN FROM DR. HOOPER FOR SWB RESTRAINTS. ALL FOUR BEDRAILS REMAIN UP TO PREVENT BED EXIT AND ACCIDENTAL INJURY. PATIENT DENIED PAIN AND NAUSEA DURING SHIFT-UNABLE TO ADMINISTER PO MEDS D/T CONFUSION AND INABILITY TO FOLLOW COMMANDS/STAY ALERT FOLLOWING PO INTAKE.
--- NOTE | 2022-07-03 09:11 | NUR ---
AM NOTE: PATIENT SLEEPING UPON SHIFT START. WOKEN FOR VITALS AND AM CARES. MUCH MORE ALERT AND LESS CONFUSED THIS AM. ABLE TO TELL ME CLEARLY WHO SHE IS AND RECOGNIZING FAMILY. NOT ABLE TO TELL ME PLACE OR SITUATION. LESS ANXIOUS AND NO SIGNS OF HALLUCINATIONS THIS AM. RESTING QUIETLY AT THIS TIME. RESTRAINTS REMOVED AT 0830. XENA SANCHEZ AT BEDSIDE HELPING WITH CARES. PERRLA. UP WITH SBA TO BSC. GREER CATH IN PLACE DRAINING CLEAR/YELLOW URINE TO GRAVITY. CATH CARE COMPLETED WITH AM CARES. LOOSE DARK BLACK/GREEN STOOLS. Q2 TURNING AND NEEDED. LAYING ON LEFT SIDE AT THIS TIME. ON ROOM AIR SATING ABOVE 94%. EXPIRATORY WHEEZE HEARD IN UPPER AIRWAY, CLEARS WITH COUGHING. LOWER LUNG MIRANDA CLEAR AND DIM. RESPIRATORY CARE IN WITH BREATHING TREATMENTS. TELE SHOWING SINUS RHYTHM WITH HR 80-90'S. BP STABLE. MORN MEDS GIVEN AND HEPARIN GTT INFUSING, WILL BE DC'D THIS AM AT 48 HOUR [place]. STRONG PERIPHERAL PULSES. BOWEL TONES PRESENT. DENIES NAUSEA. NOT WANTING ANY BREAKFAST THIS AM. DRINKING WATER. ACHS BLOOD SUGARS. DR. EARL IN THIS AM TO DISCUSS WITH XENA SANCHEZ. PLAN FOR PATIENT TO FOLLOW UP OUTPATIENT FOR POSSIBLE STRESS TEST. XENA SANCHEZ ABLE TO TEACH BACK INSTRUCTIONS TO DR. EARL. CALL LIGHT IN REACH. BED ALARM IN PLACE WILL CONTINUE TO MONITOR.
--- NOTE | 2022-07-03 09:36 | NUR ---
HEPARIN DISCONTINUED AT THIS TIME. PATIENT HAS BEEN ON FOR 48 HOURS. PHARMACY NOTIFIED. PATIENT REMAINS SLEEPING, OUT OF RESTRAINTS AND DAUGHTER AT BEDSIDE.
[2022-07-03] MEDS ORDERED: IPRAT-ALBUT 0.5-3 ML INH (14:26)
[2022-07-03] MEDS ORDERED: ACET325 PO (14:31)
[2022-07-03] MEDS ORDERED: Amlodipine Bes2.5 MG PO (14:32)
[2022-07-03] MEDS ORDERED: ASPI81CH PO (14:33)
[2022-07-03] MEDS ORDERED: LEVO750 PO (14:34)
[2022-07-03] MEDS ORDERED: METO50ER PO (14:36)
[2022-07-03] MEDS ORDERED: VISBIOME 112.51 EACH PO (14:37)
--- NOTE | 2022-07-03 15:31 | NUR ---
DISCHARGE: PATIENT REMAINS TIRED AND SLEEPY THIS AFTERNOON. VITAL SIGNS REMAIN STABLE. ALERT TO SELF, FAMILY, AND SITUATION. NO CHANGES TO TELE. REMAINS ON ROOM AIR. DISCHARGE INSTRUCTIONS REVIEWED WITH DAUGHTER DANIEL AND PATIENT. ABLE TO TEACH BACK INSTRUCTIONS. MEDICATIONS FAXED TO [facility]. IV AND POWERGLIDE REMOVED WNL. GREER CATH REMOVED WNL. PATIENT LEFT UNIT VIA WHEELCHAIR WITH ALL PERSONAL BELONGINGS.
== END 2022-07-03 15:29 | disposition home or self-care (01) | DRG 871 ==
LOC: ER 16:27 → PCU 19:54 → ERHOLD 19:54 → PCU 21:13
PROVIDERS: Emergency Medicine; Family Medicine; Hospitalist; Student in an Organized Health Care Education/Training Program; ADMIT Family Medicine
DX: A41.9 Sepsis, unspecified organism (principal); G92.8 Other toxic encephalopathy; R65.21 Severe sepsis with septic shock; I21.A1 Myocardial infarction type 2; J18.9 Pneumonia, unspecified organism; J44.0 Chronic obstructive pulmonary disease with (acute) lower respiratory infection; N17.9 Acute kidney failure, unspecified; E87.1 Hypo-osmolality and hyponatremia; Z20.822 Contact with and (suspected) exposure to COVID-19; F41.9 Anxiety disorder, unspecified; E11.22 Type 2 diabetes mellitus with diabetic chronic kidney disease; I12.9 Hypertensive chronic kidney disease with stage 1 through stage 4 chronic kidney disease, or unspecified chronic kidney disease; E03.9 Hypothyroidism, unspecified; G89.29 Other chronic pain; R91.1 Solitary pulmonary nodule; M79.7 Fibromyalgia; G47.33 Obstructive sleep apnea (adult) (pediatric); I27.20 Pulmonary hypertension, unspecified; Z88.1 Allergy status to other antibiotic agents; Z88.0 Allergy status to penicillin; Z88.8 Allergy status to other drugs, medicaments and biological substances; Z90.49 Acquired absence of other specified parts of digestive tract; Z90.710 Acquired absence of both cervix and uterus; Z98.890 Other specified postprocedural states; E83.42 Hypomagnesemia; N18.9 Chronic kidney disease, unspecified; D35.02 Benign neoplasm of left adrenal gland
CPT/HCPCS: 0241U; 36415; 36600; 51702; 71046; 71260; 80048; 80053; 82272; 82803; 82947; 83036; 83605; 83735; 83880; 84484; 85025; 85379; 85520; 85610; 85730; 87040; 87086; 93005; 93010; 93306; 94640; 94660; 94664; 94760; 94762; 96374-59; 96375-59; 99285-25; A9270; C1751; J0692; J1644; J1815; J1885; J1940; J1956; J2270; J2405; J3010; J3475; J7030; J7120; Q9967

== ENCOUNTER → 2022-10-22 | Outpatient (CLI) | payer OTHER ==
[~2022-10-22] MED LIST changes: +ASPI81CH PO; +Amlodipine Bes2.5 MG PO; +FLUV50 PO; +IPRAT-ALBUT 0.5-3 ML INH; +METO50ER PO; +VISBIOME 112.51 EACH PO
== END | disposition home or self-care (01) ==
LOC: LAB SHORT 12:46 → LAB 12:46
DX: R10.9 Unspecified abdominal pain (principal)
CPT/HCPCS: 87077; 87086; 87186

== ENCOUNTER → 2023-01-26 | Outpatient (CLI) | payer OTHER ==
[2023-01-26 19:22] LABS: BASOPHILS ABSOLUTE AUTO 0.03 K/mm3 (0.00-0.23); BASOPHILS PERCENT AUTO 0 % (0-2); EOSINOPHILS ABSOLUTE AUTO 0.35 K/mm3 (0.00-0.68); EOSINOPHILS PERCENT AUTO 4 % (0-6); Hemoglobin 10.5 g/dL (11.5-16.0); IMMATURE GRAN ABSOLUTE AUTO 0.01 K/mm3 (0.00-0.10); IMMATURE GRAN PERCENT AUTO 0 % (0-1); LYMPHOCYTES PERCENT AUTO 53 % (21-46); MONOCYTES ABSOLUTE AUTO 0.56 K/mm3 (0.16-1.47); MONOCYTES PERCENT AUTO 6 % (4-13); Mean Corpuscular HGB 24.3 pg (26.0-34.0); Mean Corpuscular HGB Conc 30.9 g/dL (31.5-36.5); Mean Corpuscular Volume 79 fL (80-100); Mean Platelet Volume 11.8 fL (9.1-12.4); NEUTROPHILS ABSOLUTE AUTO 3.31 K/mm3 (1.96-9.15); NEUTROPHILS PERCENT AUTO 37 % (41-73); Platelet Count 213 K/mm3 (150-400); Red Blood Cell Count 4.32 M/mm3 (3.80-5.20); White Blood Cell Count 8.96 K/mm3 (4.00-11.30)
[2023-01-26 20:04] LABS: Bun/Creatinine Ratio 17.4 (12.0-20.0); Calcium, Blood 9.6 mg/dL (8.5-10.1); Creatinine, Blood 0.69 mg/dL (0.40-1.00)
== END | disposition home or self-care (01) ==
LOC: RAD SHORT 12:00
PROVIDERS: Family Medicine
DX: J18.9 Pneumonia, unspecified organism (principal)
CPT/HCPCS: 80048; 85025

== ENCOUNTER 2023-02-23 02:26 | Inpatient (IN) | payer OTHER ==
[~2023-02-23] VITALS: Ht 154.9 cm; Wt 70.2 kg
[2023-02-23] VITALS (59 sets, daily range): BP systolic 66–127; BP diastolic 32–70
[2023-02-23 02:53] LABS: BASOPHILS ABSOLUTE AUTO 0.07 K/mm3 (0.00-0.23); BASOPHILS PERCENT AUTO 0 % (0-2); EOSINOPHILS PERCENT AUTO 0 % (0-6); Hematocrit 34.6 % (33.0-51.0); Hemoglobin 10.7 g/dL (11.5-16.0); IMMATURE GRAN ABSOLUTE AUTO 0.34 K/mm3 (0.00-0.10); IMMATURE GRAN PERCENT AUTO 1 % (0-1); LYMPHOCYTES ABSOLUTE AUTO 1.47 K/mm3 (0.84-5.20); LYMPHOCYTES PERCENT AUTO 6 % (21-46); MONOCYTES ABSOLUTE AUTO 1.17 K/mm3 (0.16-1.47); MONOCYTES PERCENT AUTO 5 % (4-13); Mean Corpuscular HGB 24.1 pg (26.0-34.0); Mean Corpuscular HGB Conc 30.9 g/dL (31.5-36.5); Mean Corpuscular Volume 78 fL (80-100); Mean Platelet Volume 9.4 fL (9.1-12.4); NEUTROPHILS ABSOLUTE AUTO 22.22 K/mm3 (1.96-9.15); NEUTROPHILS PERCENT AUTO 88 % (41-73); Platelet Count 348 K/mm3 (150-400); RDW Coefficient Variation 15.9 % (11.7-14.2); RDW Standard Deviation 45.1 fL (35.1-46.3); Red Blood Cell Count 4.44 M/mm3 (3.80-5.20); White Blood Cell Count 25.27 K/mm3 (4.00-11.30)
[2023-02-23 03:10] LABS: Albumin, Blood 3.1 g/dL (3.4-5.0); Albumin/Globulin Ratio 0.8 (0.8-1.8); Bilirubin, Total 0.6 mg/dL (0.1-1.0); Bun/Creatinine Ratio 13.3 (12.0-20.0); Calcium, Blood 9.1 mg/dL (8.5-10.1); Creatinine, Blood 0.83 mg/dL (0.40-1.00); Globulin, Blood 3.7 g/dL (2.2-4.0); Potassium, Blood 4.9 mmol/L (3.5-5.5); Total Protein, Blood 6.8 g/dL (6.4-8.2)
[2023-02-23 04:21] LABS: Source, Urine Straight Cath
[2023-02-23 04:23] LABS: Bilirubin, Urine Neg (Neg); Blood, Urine Neg (Neg); Glucose Qualitative, Urine 1+ (Neg); Ketones, Urine Neg (Neg); Leukocyte Esterase, Urine Neg (Neg); Nitrite, Urine Neg (Neg); Protein, Urine 1+ (Neg); Specific Gravity, Urine 1.005 (1.003-1.022); Urobilinogen, Urine NORM (Normal)
[2023-02-23 04:44] LABS: Appearance, Urine Clear (Clear); Color, Urine Yellow (P-Yellow)
[2023-02-23 06:36] LABS: International Normalized Ratio 1.24; Prothrombin Time Results 12.9 Sec (9.7-11.5)
[2023-02-23] MEDS ORDERED: BENZONATATE100 MG PO (08:52)
--- NOTE | 2023-02-23 10:22 | NUR ---
PT ARRIVED IN THE UNIT FORM ERD AT 0745A TRANSFERRED VIA SLIDER SHEET TO PCU BED REPORT RECEIVED FROM XAVI BRAUN. PT IS HERE FOR SEPSIS SUSPECTING PNA/UTI. PT IS ALERT AND ORIENTED 3-4, LUCID WITH CONVERSATION BUT LETHARGIC AND FALLS ASLEEP QUICK. VITALS HRR ST 100'S WITH PVX PER TELE, SBP LOW 70-90'S MAP <65 DR LAMB ORDERED ANOTHER 1L OF NS BOLUS AND MIDODRINE 10MG TID PRN SBP WENT UP TO 100'S BUT THEN WENT BACK DOWN TO 86/[address] MARINELLI WAS CALLED AND MADE AWARE TO KEEP MONITORING BP IN AN HOUR THEN REPEAT LACTIC NOW. PT WAS ASSISTED TO BEDSIDE COMMODE STANDBY ASSIST PT HAD 300 MLS SMELLY URINE OUT. PT IS NOW BACK IN BED SLEEPING. CALL LIGHTS IN REACH WILL MONITOR
[2023-02-23 17:14] LABS: Hematocrit 27.6 % (33.0-51.0); Hemoglobin 8.4 g/dL (11.5-16.0); Mean Corpuscular HGB Conc 30.4 g/dL (31.5-36.5); Mean Corpuscular Volume 79 fL (80-100); Mean Platelet Volume 9.8 fL (9.1-12.4); Platelet Count 288 K/mm3 (150-400); RDW Coefficient Variation 16.4 % (11.7-14.2); RDW Standard Deviation 46.9 fL (35.1-46.3)
[2023-02-23 18:43] LABS: Creatinine, Blood 0.81 mg/dL (0.40-1.00); Potassium, Blood 4.7 mmol/L (3.5-5.5)
--- NOTE | 2023-02-23 18:44 | NUR ---
PT TRANSFERRED TO ICU 16 VIA BED REPORT GIVEN TO SHUKRI RN. DARY (GRAND DAUGHTER) MADE AWARE OF THE TRANSFER. BLOOD PRESSURE REMAINED LOW SBP 80-90'S WITH MAP <60 EVEN AFTER SECOND DOSE OF MIDODRINE AND FLUIDS RUNNING AT 200MLS/HR. DR RO MADE AWARE ALL NEW ORDERS PLACED AND REPORTED TO SWING SAW OPERATOR, TO START PT ON LEVOPHED PER ORDERS. ALL BELONGINGS SENT WITH THE PT
--- NOTE | 2023-02-23 19:32 | NUR ---
PT ARRIVED FROM PCU AT 1624 MOVED OVER TO ICU BED. A/O, PLEASANT AND COOPERATIVE. BP LOW, AWAITING LEVOPHED DRIP. SKIN INTACT, SKIN CHECK WITH APARNA MORTON. BUTTOCKS RED/BLANCHABLE. PT'S GRANDDAUGHTER NOTIFIED OF TRANSFER TO ICU, DAUGHTER IS IN [place]OUTE FROM [place]. NS INFUSING AT 200ML/HR. PT DENIES PAIN/DISCOMFORT. REPORT GIVEN TO ONCOMING RN.
[2023-02-23 20:35] LABS: Hematocrit 28.3 % (33.0-51.0); Hemoglobin 8.8 g/dL (11.5-16.0)
--- NOTE | 2023-02-23 23:35 | NUR ---
ASSUMED CARE AT 1900 PT LAYING IN BED WATCHING TV AT SHIFT CHANGE. SHE IS A/O X4 AND FOLLOWS DIRECTION; FATIGUE NOTED; WHEN NOT STIMULATED SHE IS SLEEPING; GENERALIZED WEAKNESS NOTED. AFEBRILE. SPO2 >95% ON 2L NC. HR 80'S. SBP 100-120'S, MAP 65-69; LEVOPHED TITRATED UP TO 6MCG/MIN. SEE SHIFT ASSESSMENT FOR FULL ASSESSMENT.
[2023-02-24] VITALS (62 sets, daily range): BP systolic 85–147; BP diastolic 35–126
[2023-02-24 03:26] LABS: BASOPHILS ABSOLUTE AUTO 0.12 K/mm3 (0.00-0.23); BASOPHILS PERCENT AUTO 0 % (0-2); Hemoglobin 9.1 g/dL (11.5-16.0); LYMPHOCYTES ABSOLUTE AUTO 2.97 K/mm3 (0.84-5.20); LYMPHOCYTES PERCENT AUTO 11 % (21-46); MONOCYTES ABSOLUTE AUTO 1.43 K/mm3 (0.16-1.47); MONOCYTES PERCENT AUTO 5 % (4-13); Mean Corpuscular HGB 23.8 pg (26.0-34.0); Mean Corpuscular HGB Conc 30.3 g/dL (31.5-36.5); Mean Corpuscular Volume 78 fL (80-100); Mean Platelet Volume 9.6 fL (9.1-12.4); Platelet Count 342 K/mm3 (150-400); RDW Coefficient Variation 16.5 % (11.7-14.2); RDW Standard Deviation 46.9 fL (35.1-46.3); Red Blood Cell Count 3.83 M/mm3 (3.80-5.20); White Blood Cell Count 28.11 K/mm3 (4.00-11.30)
[2023-02-24 03:30] LABS: EOSINOPHILS ABSOLUTE AUTO 0.08 K/mm3 (0.00-0.68); EOSINOPHILS PERCENT AUTO 0 % (0-6); IMMATURE GRAN PERCENT AUTO 1 % (0-1); NEUTROPHILS ABSOLUTE AUTO 23.11 K/mm3 (1.96-9.15); NEUTROPHILS PERCENT AUTO 82 % (41-73)
[2023-02-24 03:45] LABS: Albumin, Blood 2.1 g/dL (3.4-5.0); Albumin/Globulin Ratio 0.6 (0.8-1.8); Bilirubin, Total 0.3 mg/dL (0.1-1.0); Bun/Creatinine Ratio 24.1 (12.0-20.0); Creatinine, Blood 0.71 mg/dL (0.40-1.00); Globulin, Blood 3.4 g/dL (2.2-4.0); Potassium, Blood 4.4 mmol/L (3.5-5.5); Total Protein, Blood 5.5 g/dL (6.4-8.2)
[2023-02-24 03:49] LABS: BAND PERCENT MAN 9 % (0-8); BASOPHILS PERCENT MAN 0 % (0-2); EOSINOPHILS PERCENT MAN 0 % (0-6); LYMPHOCYTES ABSOLUTE MAN 4.21 K/mm3 (0.84-5.20); LYMPHOCYTES PERCENT MAN 15 % (21-46); MONOCYTES ABSOLUTE MAN 0.56 K/mm3 (0.16-1.47); MONOCYTES PERCENT MAN 2 % (4-13); NEUTROPHILS ABSOLUTE MAN 23.33 K/mm3 (1.96-9.15); SEG NEUTROPHILS PERCENT MAN 74 % (41-73); TOTAL CELLS COUNTED 100
--- NOTE | 2023-02-24 07:00 | NUR ---
ASSUME CARE: I have assumed care of this patient.
--- NOTE | 2023-02-24 07:08 | NUR ---
END OF SHIFT SUMMARY PT SLEPT FOR MOST OF THE NIGHT. CONT TO BE A/O X4 AND ABLE TO MAKE HER NEEDS KNOWN. SPO2 >95% ON 2L NC. AFEBRILE. HR 80-90'S. SBP 100-120; MAP 65-70; LEVOPHED INFUSING AT 4MCG/MIN. NO BM THIS SHIFT. BED CHRISTINE USED ONCE FOR URINATION. PG TO JEANE PATENT WITH DRESSING C/D/I. LR INFUSING AT 150ML/HR. REPORT GIVEN TO YAKELIN BRAUN.
--- NOTE | 2023-02-24 10:20 | NUR ---
PHONE CALL: This RN spoke with pt's daughter over the phone. Daughter notes that pt takes a regular dose of lorazepam and began withdrawing during her last hospitalization. Attending was notified while at bedside. Please see new orders.
--- NOTE | 2023-02-24 14:30 | NUR ---
PROVIDER UPDATE: Dr Rodriges updated on pt status. Telephone order for PCU status.
--- NOTE | 2023-02-24 18:25 | NUR ---
SHIFT SUMMARY: Pt status changed to PCU today after levophed titrated off. BP maintained with midodrine. Pt up to bedside commode with standby assist. Minimal appetite due to hospital food choices. Dietitian consult placed and recommened that pt have family members bring in food. CBGs covered with one unit each.
--- NOTE | 2023-02-24 21:00 | NUR ---
ASSUMED CARE AT 1900 PT LAYING IN BED WATCHING TV AT SHIFT CHANGE. PT SON BROUGHT IN FOOD FOR PT, SHE WAS ABLE TO EAT A FEW BITE BUT THE REST IS IN THE PATIENT FRIDGE. SHE IS A/O X4 AND ABLE TO MAKE HER NEEDS KNOWN. FATIGUE AND DYSPNEA NOTED WITH EXERTION. AFEBRILE. SPO2 >98% ON 2L NC. HR 80-100; SBP 110-130'S; LEVOPHED OFF SINCE EARLIER TODAY. AMBULATES WELL TO BSC; NEEDS ASSISTANCE WITH CORD MANAGEMENT. COMPLETE BED BATH DONE. SEE SHIFT ASSESSMENT FOR FULL ASSESSMENT.
[2023-02-25] VITALS (7 sets, daily range): BP systolic 110–150; BP diastolic 50–65
--- NOTE | 2023-02-25 02:30 | NUR ---
UPDATE PT TRANSFERED TO PCU 2 AT 0225 VIA ICU BED. REPORT GIVEN TO JOSSE Araujo RN.
--- NOTE | 2023-02-25 03:59 | NUR ---
SHIFT SUMMARY PATIENT TO PCU FROM ICU 16, ABLE TO WALK TO BED. ALERT AND ORIENTED X4. 02 SATS 96% ON 2L VIA NC. DENIES SOB. HR SR 81. BP STABLE. DENIES CP/PRESSURE. INDEPENDENT REPOSITIONING IN BED. REVIEWED PREVIOUS NURSES ASSESSMENT AND AGREE. CALL LIGHT IN REACH
[2023-02-25 04:02] LABS: BASOPHILS ABSOLUTE AUTO 0.06 K/mm3 (0.00-0.23); BASOPHILS PERCENT AUTO 0 % (0-2); EOSINOPHILS PERCENT AUTO 1 % (0-6); Hematocrit 29.2 % (33.0-51.0); IMMATURE GRAN PERCENT AUTO 2 % (0-1); LYMPHOCYTES ABSOLUTE AUTO 2.12 K/mm3 (0.84-5.20); LYMPHOCYTES PERCENT AUTO 11 % (21-46); MONOCYTES ABSOLUTE AUTO 0.92 K/mm3 (0.16-1.47); MONOCYTES PERCENT AUTO 5 % (4-13); Mean Corpuscular HGB 23.8 pg (26.0-34.0); Mean Corpuscular HGB Conc 30.8 g/dL (31.5-36.5); Mean Corpuscular Volume 77 fL (80-100); Mean Platelet Volume 10.5 fL (9.1-12.4); NEUTROPHILS ABSOLUTE AUTO 14.97 K/mm3 (1.96-9.15); NEUTROPHILS PERCENT AUTO 80 % (41-73); Platelet Count 297 K/mm3 (150-400); RDW Coefficient Variation 16.6 % (11.7-14.2); RDW Standard Deviation 47.1 fL (35.1-46.3); Red Blood Cell Count 3.78 M/mm3 (3.80-5.20); White Blood Cell Count 18.67 K/mm3 (4.00-11.30)
[2023-02-25 04:26] LABS: Bun/Creatinine Ratio 23.9 (12.0-20.0); Calcium, Blood 8.4 mg/dL (8.5-10.1); Creatinine, Blood 0.63 mg/dL (0.40-1.00); Potassium, Blood 4.2 mmol/L (3.5-5.5)
--- NOTE | 2023-02-25 09:15 | NUR ---
PT ON RA UPON INITAL ASSESSMENT AND WAS TOLERATING WELL. SPO2 91-93%. WHILE MEDICATING PT, THIS RN NOTICED THAT PT SPO2 WAS FREQUENTLY DROPPING TO 85-88%. PT 1LPM NC PLACED BACK ON PT. PT WAS RELUCTANT BUT AGREED. SPO2 NOW MAINTAINING AT 93%.
--- NOTE | 2023-02-25 18:13 | NUR ---
SHIFT SUMMARY OVERALL AN UNEVENTFUL SHIFT. PT IS A/O X4, COOPERATIVE WITH CARE, AND KIND OF A FLAT AFFECT. PT EXPRESSES SHE IS ANXIOUS TO GO HOME THIS AM. THE PT REPORTED THAT ONE OF THE PROVIDERS TOLD HER THAT SHE WOULD LIKELY BE HERE UNTIL TUESDAY AND SHE SEEMED TO TOLERATE THIS OK. PT WAS FATIGUED T/O SHIFT AND HAD EPISODE OF NAUSEA THAT WAS EASILY TREATED WITH PRN ZOFRAN. PT DID NOT HAVE MUCH OF AN APPETITE AND DID NOT EAT WELL AT ANY OF HER MEALS. PT BP WAS STABLE T/O SHIFT. HR REMAINED 70-80'S AND SINUS RHYTHM. PT SPO2 THIS AM WAS DROPPING TO THE MID 80'S ON RA. THIS RN PLACED HER BACK ON 1LPM AND PT TOLERATED WELL. THIS AFTERNOON PT AMBULATED TO RESTROOM AND DESATED TO THE 80'S AND HAD TO BE BUMPED UP TO 2-3 LPM TO RECOVER. PT NOW BACK ON 1LPM AND SPO2 >92%. RESPIRATIONS ARE EVEN AND UNLABORED. PT WORKED WITH OT AND PT TODAY. SHE TOLERATED WELL. PT CURRENTLY ATTEMPTING TO EAT DINNER. SHE HAS CALL LIGHT WITHIN REACH. SHE DENIES ANY FURTHER NEEDS. WILL CONTINUE TO CARE FOR PT AND REPORT TO ONCOMING RN.
[2023-02-26 04:00] VITALS: BP 123/66
[2023-02-26 04:47] LABS: BASOPHILS ABSOLUTE AUTO 0.05 K/mm3 (0.00-0.23); BASOPHILS PERCENT AUTO 0 % (0-2); EOSINOPHILS ABSOLUTE AUTO 0.25 K/mm3 (0.00-0.68); EOSINOPHILS PERCENT AUTO 2 % (0-6); Hematocrit 28.3 % (33.0-51.0); Hemoglobin 8.6 g/dL (11.5-16.0); IMMATURE GRAN ABSOLUTE AUTO 0.05 K/mm3 (0.00-0.10); IMMATURE GRAN PERCENT AUTO 0 % (0-1); LYMPHOCYTES ABSOLUTE AUTO 2.64 K/mm3 (0.84-5.20); LYMPHOCYTES PERCENT AUTO 21 % (21-46); MONOCYTES ABSOLUTE AUTO 0.84 K/mm3 (0.16-1.47); MONOCYTES PERCENT AUTO 7 % (4-13); Mean Corpuscular HGB 23.6 pg (26.0-34.0); Mean Corpuscular HGB Conc 30.4 g/dL (31.5-36.5); Mean Corpuscular Volume 78 fL (80-100); Mean Platelet Volume 10.3 fL (9.1-12.4); NEUTROPHILS ABSOLUTE AUTO 8.94 K/mm3 (1.96-9.15); NEUTROPHILS PERCENT AUTO 70 % (41-73); Platelet Count 322 K/mm3 (150-400); RDW Coefficient Variation 16.6 % (11.7-14.2); RDW Standard Deviation 47.1 fL (35.1-46.3); Red Blood Cell Count 3.65 M/mm3 (3.80-5.20); White Blood Cell Count 12.77 K/mm3 (4.00-11.30)
[2023-02-26 05:09] LABS: Bun/Creatinine Ratio 19.3 (12.0-20.0); Calcium, Blood 8.4 mg/dL (8.5-10.1); Creatinine, Blood 0.62 mg/dL (0.40-1.00)
--- NOTE | 2023-02-26 05:35 | NUR ---
SHIFT SUMMARY ASSUMED CARE OF PT AT 1900. PT IS A/OX4. HEART SOUNDS REGULAR. LUNG SOUNDS COARSE T/O. PT WAS ON 1L NC. ATTEMPTED TO TITRATE PT BUT PT DESAT TO 86 WHILE SLEEPING. PT SLEPT T/O THE NIGHT.
[2023-02-26 08:29] VITALS: BP 127/104
[2023-02-26 08:33] VITALS: BP 145/70
--- NOTE | 2023-02-26 11:02 | NUR ---
CALL TO DAUGHTER DANIEL THIS RN CALLS TO PROVIDE UPDATE TO DAUGHTER PER PT REQUEST, VOICEMAIL LEFT FOR CALLBACK.
[2023-02-26 12:32] VITALS: BP 117/52
--- NOTE | 2023-02-26 14:56 | NUR ---
REPORT TO MED APARNA JOSHUA.
[2023-02-26 16:04] VITALS: BP 129/53
--- NOTE | 2023-02-26 16:58 | NUR ---
MAKES NEEDS KNOWN, STAND BY ASSIST, ALERT AND ORIENTED X4, EXTENSION TUBING FOR PATIENT TO AMBULATE TO BATHROOM, PLEASANT TO CARE, DENEIS PAIN OR NV PRESENTLY, WILL RELAY TO PM RN
[2023-02-26 19:22] VITALS: BP 130/60
[2023-02-26] MEDS ORDERED: LISI20 PO (23:26)
[2023-02-26] MEDS ORDERED: ERGO50000 PO (23:27)
[2023-02-26] MEDS ORDERED: LORAZEPAM0.5 MG PO (23:30)
[2023-02-27 05:07] VITALS: BP 153/71
[2023-02-27 05:29] LABS: BASOPHILS ABSOLUTE AUTO 0.05 K/mm3 (0.00-0.23); BASOPHILS PERCENT AUTO 1 % (0-2); EOSINOPHILS ABSOLUTE AUTO 0.25 K/mm3 (0.00-0.68); EOSINOPHILS PERCENT AUTO 2 % (0-6); Hematocrit 28.2 % (33.0-51.0); Hemoglobin 8.6 g/dL (11.5-16.0); IMMATURE GRAN ABSOLUTE AUTO 0.11 K/mm3 (0.00-0.10); IMMATURE GRAN PERCENT AUTO 1 % (0-1); LYMPHOCYTES ABSOLUTE AUTO 2.75 K/mm3 (0.84-5.20); LYMPHOCYTES PERCENT AUTO 25 % (21-46); MONOCYTES ABSOLUTE AUTO 0.84 K/mm3 (0.16-1.47); MONOCYTES PERCENT AUTO 8 % (4-13); Mean Corpuscular HGB 23.2 pg (26.0-34.0); Mean Corpuscular HGB Conc 30.5 g/dL (31.5-36.5); Mean Corpuscular Volume 76 fL (80-100); Mean Platelet Volume 9.4 fL (9.1-12.4); NEUTROPHILS ABSOLUTE AUTO 7.03 K/mm3 (1.96-9.15); NEUTROPHILS PERCENT AUTO 64 % (41-73); Platelet Count 330 K/mm3 (150-400); RDW Coefficient Variation 16.3 % (11.7-14.2); RDW Standard Deviation 45.1 fL (35.1-46.3); Red Blood Cell Count 3.71 M/mm3 (3.80-5.20); White Blood Cell Count 11.03 K/mm3 (4.00-11.30)
--- NOTE | 2023-02-27 05:53 | NUR ---
SHIFT SUMMARY NOC PT A/O X 4. PLEASANT AND COOPERATIVE WITH CARE. PT ON TELE RUNNING SINUS RHYTHM HR 88 BPM. PT ON O2 2L/NC SPO2 MAINTAINING >92% WITH CX BIOX. PG IN JEANE THAT DOES NOT DRAW. NO ACUTE CHANGES TO REPORT. PT IS CURRENTLY RESTING WITH BED IN LOWEST POSITION, AND CALL LIGHT WITHIN REACH.
[2023-02-27 05:55] LABS: Bun/Creatinine Ratio 17.3 (12.0-20.0); Calcium, Blood 8.6 mg/dL (8.5-10.1); Creatinine, Blood 0.58 mg/dL (0.40-1.00); Potassium, Blood 3.8 mmol/L (3.5-5.5)
[2023-02-27 07:42] VITALS: BP 133/75
--- NOTE | 2023-02-27 10:52 | NUR ---
POWERGLIDE REMOVED THIS AM IT WAS PAINFUL TO FLUSH. R ARM PAINFUL ON POWERGLIDE REMOVAL. TIP INTACT. R ARM SWOLLEN FROM SHOULDER TO WRIST. GIVEN TYLENOL WHICH BROUGHT PAIN FORM 05/02 TO 01/31. HEAT PAD APPLIED. SEEN BY DR JOHAN LAMB.
[2023-02-27] MEDS ORDERED: LACT PO (11:28)
[2023-02-27] MEDS ORDERED: SULFAMETHOXAZO1 EAC1 PO (11:29)
--- NOTE | 2023-02-27 11:46 | NUR ---
DISCHARGE NOTE PT VERBALISED UNDERSTANDING OR WRITTEN AND VERBAL DISCHARGE INSTRUCTIONS. DC MEDS FAXED TO [facility]. MS GARY SAID HER RIGHT ARM IS FEELING LESS PAINFUL AFTER HAVING HEAT PAD ON IT, AND THAT SHE HAS A HEAT PAD AT HOME SHE WILL USE. TELEMETRY REMOVED. PT HAS NO OTHER COMPLAINTS OR CONCERNS AT TIME OF DISCHARGE. W/C ESCORT TO MEET HER SON WHO IS GIVING HER A RIDE HOME. LEFT MEDICAL UNIT AT 1150HRS.
== END 2023-02-27 12:15 | disposition home or self-care (01) | DRG 871 ==
LOC: ER 02:26 → ERHOLD 02:27 → MEDS 06:22 → ERHOLD 06:22 → PCU 07:46 → ICUW 18:21 → PCU 02-25 02:25 → MEDS 02-26 15:10 → ENPENDDIS 02-27 10:59 → MEDS 02-27 12:15
PROVIDERS: Emergency Medicine; Family Medicine; Hospitalist; Student in an Organized Health Care Education/Training Program; ADMIT Internal Medicine
PROC: 3E03329 Introduction of Other Anti-infective into Peripheral Vein, Percutaneous Approach (ICD-10-PCS; 2023-02-23)
PROC: 3E033XZ Introduction of Vasopressor into Peripheral Vein, Percutaneous Approach (ICD-10-PCS; principal; 2023-02-24)
DX: A41.02 Sepsis due to Methicillin resistant Staphylococcus aureus (principal); G93.41 Metabolic encephalopathy; J18.9 Pneumonia, unspecified organism; R65.21 Severe sepsis with septic shock; E87.20 Acidosis, unspecified; J44.0 Chronic obstructive pulmonary disease with (acute) lower respiratory infection; K59.00 Constipation, unspecified; G89.29 Other chronic pain; M54.9 Dorsalgia, unspecified; I10 Essential (primary) hypertension; E03.9 Hypothyroidism, unspecified; M79.7 Fibromyalgia; F32.A Depression, unspecified; E66.9 Obesity, unspecified; G47.30 Sleep apnea, unspecified; F41.9 Anxiety disorder, unspecified; E11.65 Type 2 diabetes mellitus with hyperglycemia; Z68.29 Body mass index [BMI] 29.0-29.9, adult; Z87.891 Personal history of nicotine dependence; Z90.89 Acquired absence of other organs; Z90.710 Acquired absence of both cervix and uterus; Z98.890 Other specified postprocedural states; Z99.81 Dependence on supplemental oxygen; Z88.1 Allergy status to other antibiotic agents; Z88.8 Allergy status to other drugs, medicaments and biological substances; Z91.048 Other nonmedicinal substance allergy status; Z88.0 Allergy status to penicillin; Z90.49 Acquired absence of other specified parts of digestive tract; Z87.448 Personal history of other diseases of urinary system; Z79.899 Other long term (current) drug therapy
CPT/HCPCS: 36415; 71046; 74177; 80048; 80053; 80202; 82533; 82947; 83605; 83690; 83880; 84145; 84443; 84484; 85014; 85018; 85025; 85027; 85610; 86850; 86900; 86901; 87040; 87070; 87205; 93005; 93010; 93306; 94640; 94664; 94760; 94762; 96365-59; 96375; 96376; 97110; 97112; 97116; 97162; 97166; 99285-25; A9270; C1751; J0692; J0696; J1170; J1650; J2405; J2543; J3010; J3370; J7030; J7050; J7060; J7120; Q9967

== ENCOUNTER 2024-02-13 16:45 | Emergency (ER) | payer OTHER ==
[~2024-02-13] VITALS: Ht 154.9 cm; Wt 70.3 kg
[~2024-02-13 16:45] MED LIST changes: +AZIT500 PO; +BENZONATATE100 MG PO; +CEFP200 PO; +CYMBALTA30 M2 PO; +DIAZEPAM2 M2 PO; +ERGO50000 PO; +LACT PO; +LORAZEPAM0.5 MG PO; +SULFAMETHOXAZO1 EAC1 PO; +ZESTRIL40 M1 PO
[2024-02-13 17:07] VITALS: BP 155/81
[2024-02-13] MEDS ORDERED: METFORMIN HCL500 M3 PO (17:09)
[2024-02-13 17:53] LABS: BASOPHILS ABSOLUTE AUTO 0.06 K/mm3 (0.00-0.23); BASOPHILS PERCENT AUTO 1 % (0-2); EOSINOPHILS ABSOLUTE AUTO 0.22 K/mm3 (0.00-0.68); EOSINOPHILS PERCENT AUTO 2 % (0-6); Hematocrit 39.7 % (33.0-51.0); Hemoglobin 12.7 g/dL (11.5-16.0); IMMATURE GRAN ABSOLUTE AUTO 0.03 K/mm3 (0.00-0.10); IMMATURE GRAN PERCENT AUTO 0 % (0-1); LYMPHOCYTES ABSOLUTE AUTO 2.77 K/mm3 (0.84-5.20); LYMPHOCYTES PERCENT AUTO 27 % (21-46); MONOCYTES ABSOLUTE AUTO 0.38 K/mm3 (0.16-1.47); MONOCYTES PERCENT AUTO 4 % (4-13); Mean Corpuscular HGB 26.2 pg (26.0-34.0); Mean Corpuscular Volume 82 fL (80-100); Mean Platelet Volume 9.8 fL (9.1-12.4); NEUTROPHILS ABSOLUTE AUTO 6.86 K/mm3 (1.96-9.15); NEUTROPHILS PERCENT AUTO 67 % (41-73); Platelet Count 426 K/mm3 (150-400); RDW Coefficient Variation 13.8 % (11.7-14.2); RDW Standard Deviation 40.7 fL (35.1-46.3); Red Blood Cell Count 4.84 M/mm3 (3.80-5.20); White Blood Cell Count 10.32 K/mm3 (4.00-11.30)
[2024-02-13 17:57] LABS: Bicarbonate Venous 25.2 mmol/L (24.0-30.0); PCO2 Venous 52.4 mmHg (38-42); pH Blood Venous 7.34 (7.34-7.37)
[2024-02-13 17:58] LABS: Base Excess Venous 2.2 mmol/L
[2024-02-13 18:27] LABS: Beta-hydroxybutyrate 1.7 mg/dL (0.2-2.8)
[2024-02-13 18:32] LABS: Albumin, Blood 3.6 g/dL (3.4-5.0); Albumin/Globulin Ratio 0.9 (0.8-1.8); Bilirubin, Total 0.2 mg/dL (0.1-1.0); Bun/Creatinine Ratio 43.3 (12.0-20.0); Calcium, Blood 10.1 mg/dL (8.5-10.1); Creatinine, Blood 0.74 mg/dL (0.40-1.00); Globulin, Blood 4.2 g/dL (2.2-4.0); Potassium, Blood 4.7 mmol/L (3.5-5.5); Total Protein, Blood 7.8 g/dL (6.4-8.2)
[2024-02-13] MEDS ORDERED: Albuterol 2.5 MG/3 ML VIAL INH SCH (20:00)
[2024-02-13] MEDS ORDERED: NS 1,000 ML IV SCH (20:00)
[2024-02-13] MEDS ORDERED: Ipratropium Bromide INH 0.02% 0.5 mg/2.5ML Vial INH SCH (20:15)
[2024-02-13] MEDS ORDERED: Ondansetron HCl 2 MG / ML 2ML Vial IV ONE (20:25)
[2024-02-13] MEDS ORDERED: LORazepam 2 MG/ML 1ML Injection IV ONE (21:00)
[2024-02-13] MEDS ORDERED: DIAZ2 PO (22:23)
[2024-02-13 22:41] LABS: Source, Urine Clean Catch
[2024-02-13 22:47] LABS: Bilirubin, Urine Neg (Neg); Blood, Urine Neg (Neg); Glucose Qualitative, Urine 4+ (Neg); Ketones, Urine Neg (Neg); Leukocyte Esterase, Urine Neg (Neg); Nitrite, Urine Neg (Neg); Protein, Urine Neg (Neg); Urobilinogen, Urine NORM (Normal)
[2024-02-13 22:51] LABS: Appearance, Urine Clear (Clear); Color, Urine Pale Yellow (P-Yellow)
[2024-02-13 23:02] LABS: U Amphetamine Screen Not Detected; U Barbituate Screen Not Detected; U Benzodiazapine Screen DETECTED; U Buprenorphine Screen Not Detected; U Cannabinoids Screen Not Detected; U Cocaine Screen Not Detected; U Methadone Screen Not Detected; U Methamphetamine Screen Not Detected; U Opiates Screen DETECTED; U Oxycodone Screen Not Detected; U Phencyclidine Screen Not Detected
== END 2024-02-13 23:34 | disposition home or self-care (01) ==
LOC: ER 16:45
PROVIDERS: Physician Assistant; Student in an Organized Health Care Education/Training Program
DX: F13.239 Sedative, hypnotic or anxiolytic dependence with withdrawal, unspecified (principal); F41.9 Anxiety disorder, unspecified; T42.4X5A Adverse effect of benzodiazepines, initial encounter; J44.9 Chronic obstructive pulmonary disease, unspecified; E11.9 Type 2 diabetes mellitus without complications; I10 Essential (primary) hypertension; Z79.84 Long term (current) use of oral hypoglycemic drugs; Z79.899 Other long term (current) drug therapy; Z91.09 Other allergy status, other than to drugs and biological substances; Z88.0 Allergy status to penicillin; Z88.8 Allergy status to other drugs, medicaments and biological substances; Z87.891 Personal history of nicotine dependence
CPT/HCPCS: 71045; 80053; 81003; 82010; 82803; 82947; 83930; 85025; 94644; 94645; 94664; 96361; 96374; 96375; 99284-25; J2060; J2405; J7030

== ENCOUNTER 2024-09-30 14:48 | Inpatient (IN) | payer OTHER ==
[~2024-09-30] VITALS: Ht 154.9 cm; Wt 71.0 kg
[~2024-09-30 14:48] MED LIST changes: +DIAZ2 PO; +METFORMIN HCL500 M3 PO
[2024-09-30] MEDS ORDERED: Acetaminophen 500 MG Tab PO ONE (15:30)
[2024-09-30] MEDS ORDERED: Morphine Sulfate 4 MG/1 ML Injection IV ONE (15:35)
[2024-09-30 15:56] LABS: BASOPHILS ABSOLUTE AUTO 0.03 K/mm3 (0.00-0.23); BASOPHILS PERCENT AUTO 0 % (0-2); EOSINOPHILS ABSOLUTE AUTO 0.05 K/mm3 (0.00-0.68); EOSINOPHILS PERCENT AUTO 0 % (0-6); Hematocrit 36.4 % (33.0-51.0); Hemoglobin 11.6 g/dL (11.5-16.0); IMMATURE GRAN ABSOLUTE AUTO 0.06 K/mm3 (0.00-0.10); IMMATURE GRAN PERCENT AUTO 0 % (0-1); LYMPHOCYTES PERCENT AUTO 6 % (21-46); MONOCYTES PERCENT AUTO 8 % (4-13); Mean Corpuscular HGB 26.1 pg (26.0-34.0); Mean Corpuscular HGB Conc 31.9 g/dL (31.5-36.5); Mean Corpuscular Volume 82 fL (80-100); Mean Platelet Volume 10.2 fL (9.1-12.4); NEUTROPHILS ABSOLUTE AUTO 11.43 K/mm3 (1.96-9.15); NEUTROPHILS PERCENT AUTO 86 % (41-73); Platelet Count 291 K/mm3 (150-400); RDW Coefficient Variation 15.3 % (11.7-14.2); RDW Standard Deviation 45.1 fL (35.1-46.3); Red Blood Cell Count 4.45 M/mm3 (3.80-5.20); White Blood Cell Count 13.37 K/mm3 (4.00-11.30)
[2024-09-30 16:19] LABS: Albumin, Blood 3.1 g/dL (3.4-5.0); Albumin/Globulin Ratio 0.9 (0.8-1.8); Bilirubin, Total 0.6 mg/dL (0.1-1.0); Bun/Creatinine Ratio 14.4 (12.0-20.0); Calcium, Blood 9.1 mg/dL (8.5-10.1); Creatinine, Blood 0.56 mg/dL (0.40-1.00); Globulin, Blood 3.5 g/dL (2.2-4.0); Potassium, Blood 3.3 mmol/L (3.5-5.5); Total Protein, Blood 6.6 g/dL (6.4-8.2)
[2024-09-30 16:34] LABS: Influenza A, PCR NEGATIVE (NEGATIVE); Influenza B, PCR NEGATIVE (NEGATIVE); Resp Syncytial Virus, PCR NEGATIVE (NEGATIVE); SARS-Cov-2 (COVID-19) PCR, MMC NEGATIVE (NEGATIVE)
[2024-09-30] MEDS ORDERED: Ondansetron HCl 2 MG / ML 2ML Vial IV ONE (16:35)
[2024-09-30] MEDS ORDERED: NS 500 ML IV SCH (17:45)
[2024-09-30] MEDS ORDERED: CefTRIAXone Sodium 1,000 MG in NS 100 ML IV ONE (18:05)
[2024-09-30] MEDS ORDERED: NAPR500 PO (18:56)
[2024-09-30] MEDS ORDERED: ACET500 PO (18:58)
[2024-09-30] MEDS ORDERED: LORazepam 0.5 MG Tab PO PRN (19:45)
[2024-09-30] MEDS ORDERED: Acetaminophen 500 MG Tab PO PRN (19:45)
[2024-09-30] MEDS ORDERED: Albuterol 2.5 MG/3 ML VIAL INH PRN (19:45)
[2024-09-30 20:01] LABS: Source, Urine Clean Catch
[2024-09-30 20:03] LABS: Bilirubin, Urine Neg (Neg); Blood, Urine Neg (Neg); Glucose Qualitative, Urine 3+ (Neg); Ketones, Urine Neg (Neg); Leukocyte Esterase, Urine 1+ (Neg); Nitrite, Urine Neg (Neg); Protein, Urine 1+ (Neg); Urobilinogen, Urine NORM (Normal)
[2024-09-30] MEDS ORDERED: FLU VACC TS2024-25(6MOS UP)/PF 45 MCG/0.5 ML SYRINGE IM ONE (20:05)
[2024-09-30 20:08] LABS: Appearance, Urine Clear (Clear); Color, Urine Yellow (P-Yellow)
[2024-09-30 20:11] LABS: Bacteria Few /hpf; Red Blood Cells, Urine Not Seen /hpf (0-2); Squamous Epithelial Cells Mod /hpf (Few); White Blood Cells, Urine 0-2 /hpf (0-5)
[2024-09-30] MEDS ORDERED: Lactated Ringer's 1,000 ML IV SCH (20:20)
[2024-09-30 20:58] LABS: International Normalized Ratio 1.13
[2024-09-30 21:08] LABS: Magnesium, Blood 1.1 mg/dL (1.6-2.4)
[2024-09-30] MEDS ORDERED: Magnesium Sulf 2 GM/Water 50ML 50 ML IV STA (21:21)
[2024-10-01] MEDS ORDERED: NS 500 ML IV SCH ×2 (01:45→03:40)
[2024-10-01] MEDS ORDERED: NS 1,000 ML IV SCH (02:00)
[2024-10-01 02:06] LABS: Hemoglobin 10.6 g/dL (11.5-16.0); Mean Corpuscular HGB 26.4 pg (26.0-34.0); Mean Corpuscular HGB Conc 31.2 g/dL (31.5-36.5); Mean Corpuscular Volume 85 fL (80-100); Mean Platelet Volume 9.9 fL (9.1-12.4); Platelet Count 281 K/mm3 (150-400); RDW Coefficient Variation 15.6 % (11.7-14.2); RDW Standard Deviation 47.9 fL (35.1-46.3); Red Blood Cell Count 4.01 M/mm3 (3.80-5.20)
[2024-10-01 02:25] LABS: Bun/Creatinine Ratio 12.4 (12.0-20.0); Calcium, Blood 8.4 mg/dL (8.5-10.1); Creatinine, Blood 0.97 mg/dL (0.40-1.00); Potassium, Blood 4.3 mmol/L (3.5-5.5); Thyroid Stimulating Hormone 0.341 uIU/mL (0.360-4.800)
[2024-10-01 02:41] LABS: BAND PERCENT MAN 16 % (0-8); BASOPHILS PERCENT MAN 0 % (0-2); EOSINOPHILS PERCENT MAN 0 % (0-6); LYMPHOCYTES ABSOLUTE MAN 2.66 K/mm3 (0.84-5.20); LYMPHOCYTES PERCENT MAN 19 % (21-46); METAMYELOCYTE ABSOLUTE MAN 0.14 K/mm3 (0.00-0.00); METAMYELOCYTE PERCENT MAN 1 % (0-0); MONOCYTES ABSOLUTE MAN 0.98 K/mm3 (0.16-1.47); MONOCYTES PERCENT MAN 7 % (4-13); MYELOCYTE ABSOLUTE MAN 0.14 K/mm3 (0.00-0.00); MYELOCYTE PERCENT MAN 1 % (0-0); NEUTROPHILS ABSOLUTE MAN 10.08 K/mm3 (1.96-9.15); SEG NEUTROPHILS PERCENT MAN 56 % (41-73); TOTAL CELLS COUNTED 100
--- NOTE | 2024-10-01 04:51 | NUR ---
ASSUMED CARE. THIS NURSE RECIEVED SHIFT REPORT AND PT CAME TO ROOM AND THIS NURSE ASSUMED CARE AT APPROXIMATLY 0450.
[2024-10-01 05:14] VITALS: BP 96/61
--- NOTE | 2024-10-01 05:30 | NUR ---
SHIFT SUMMARY PT IS IN ROOM LAYING COMFORTABLY IN BED. BP APPEARS TO BE STABLE WITH NS GTT 100/HR PER EMAR. PT AMBULATED TO THE BATHROOM WITH A CANE. PT DENIES ANY WEAPONS OR DRUGS IN HER PURSE. PT COMPLAINS OF SLIGHT DISCOMFORT IN THE RUL WITH A DEEP INHALE W/O ANY OTHER COMPLAINTS. PT DENIES CHEST PAIN. BG JUST ABOVE 300, AWAITING INSULIN FROM PHARMACY. PT ON 2L NC SAT ABOVE 90%. PT AOX4. WILL CONTINUE PLAN OF CARE.
[2024-10-01 07:33] VITALS: BP 105/56
[2024-10-01] MEDS ORDERED: Insulin NPH 100 Unit / ML 10ML Vial SC ONE (08:00)
[2024-10-01 08:22] LABS: Free Thyroxine 1.17 ng/dL (0.70-1.60); Triiodothyronine, Free 1.16 pg/mL (2.18-3.98)
[2024-10-01] MEDS ORDERED: HYDROcodone 5-APAP 325 TAB PO PRN (08:30)
[2024-10-01] MEDS ORDERED: Enoxaparin 30 MG/0.3 ML SYR SC SCH (09:00)
[2024-10-01] MEDS ORDERED: Ergocalciferol 50000 Intn'l Units PO SCH (09:00)
[2024-10-01] MEDS ORDERED: Insulin Human Lispro 100 Units/ML 3ML Syringe SC SCH ×2 (11:30)
[2024-10-01 11:50] VITALS: BP 125/60
[2024-10-01 16:23] VITALS: BP 108/54
[2024-10-01] MEDS ORDERED: CefTRIAXone Sodium 2,000 MG in NS 100 ML IV SCH (18:00)
--- NOTE | 2024-10-01 18:05 | NUR ---
SHIFT SUMMARY: PT HAS BEEN A&Ox4, ANSWERS QUESTIONS APPROPRIATELY AND IS ABLE TO MAKE NEEDS KNOWN. PT STATES IMPROVEMENT TO SOB SINCE ADMISSION, LS DIM ON R SIDE, O2 SATS >92% ON RA-1L/MIN, CURRENTLY ON RA. PT CONTINUES TO ENDORSE R SIDE CHEST/RIB PAIN THAT IS WORSE W/INSPIRATION, PT STATES SHE TAKES VICODIN OR OXYCODONE AT HOME FOR BACK PAIN, NEW ORDERS PLACED AND PT MEDICATED PER EMAR x2 SO FAR. BLOOD GLUCOSE TRENDS DOWN T/OUT THE DAY AFTER INSULIN ADMINISTRATION, PT REPORTS DIFFICULTY CONTROLLING HIGHER GLUCOSE LEVELS OUTPT W/ORAL MEDICATIONS. PT AMBULATES W/CANE TO/FROM RESTROOM. IV FLUIDS COMPLETED. PT OOB TO RECLINER THIS AM FOR BREAKFAST, DECLINES FOR LUNCH AND DINNER. AT THIS TIME, PT IS RESTING QUIETLY IN ROOM W/MEAL TRAY AND CALL LIGHT IN REACH.
[2024-10-01 20:24] VITALS: BP 133/54
[2024-10-01] MEDS ORDERED: Insulin Glargine-Yfgn 100 Unit/mL 3 ML SYR SC SCH (21:00)
[2024-10-02 05:13] VITALS: BP 115/73
[2024-10-02] MEDS ORDERED: Liothyronine Sodium 5 MCG Tab PO SCH (06:00)
--- NOTE | 2024-10-02 06:20 | NUR ---
SHIFT SUMMARY PATIENT ALERT AND ORIENTED X4. PATIENT COMPLAINED OF RIGHT RIB PAIN, EXACERBATED BY MOVEMENT AND TAKING DEEP BREATHS, MEDICATED PER EMAR. WAS ON ROOM AIR WHILE AWAKE, DESATED TO MID 80'S WHILE SLEEPING AND WAS PLACED ON 2 LITERS O2 VIA NC. VITAL SIGNS STABLE. WILL CONTINUE TO MONITOR. CALL LIGHT WITHIN REACH
[2024-10-02 07:38] VITALS: BP 105/94
[2024-10-02] MEDS ORDERED: Ketorolac Tromethamine 15mg Vial IV PRN (11:05)
[2024-10-02 12:59] VITALS: BP 136/67
[2024-10-02 15:53] VITALS: BP 150/69
--- NOTE | 2024-10-02 18:28 | NUR ---
SHIFT SUMMARY: PT HAS BEEN A&Ox4, MEDICATED x2 FOR C/O ANXIETY, COOPERATIVE W/CARE, ABLE TO MAKE NEEDS KNOWN. PT DENIES SOB, O2 SATS >92% ON RA WHILE AWAKE AND UP TO 2L/MIN WHILE SLEEPING, PT PENDING SLEEP OXIMETRY TONIGHT, DOES NOT USE O2 AT HOME. PT MEDICATED PER EMAR FOR C/O PAIN TO R SIDE/CHEST/RIBS/SHOULDER, REPORTS IMPROVEMENT BUT CONTINUES TO STATE IT IS WORSE W/MOVEMENT OR DEEP INSPIRATION. PT CONTINUES TO AMBULATE TO/FROM RESTROOM W/CANE AND SBA. BEDBATH COMPLETED THIS SHIFT. IV ABX INFUSING PER ORDERS, CALL LIGHT IN REACH.
[2024-10-02 19:49] VITALS: BP 128/59
[2024-10-03 04:38] VITALS: BP 164/72
[2024-10-03 05:05] LABS: Hematocrit 34.7 % (33.0-51.0); Hemoglobin 10.6 g/dL (11.5-16.0); Mean Corpuscular HGB 25.9 pg (26.0-34.0); Mean Corpuscular HGB Conc 30.5 g/dL (31.5-36.5); Mean Corpuscular Volume 85 fL (80-100); Mean Platelet Volume 10.2 fL (9.1-12.4); Platelet Count 354 K/mm3 (150-400); RDW Coefficient Variation 16.1 % (11.7-14.2); RDW Standard Deviation 49.5 fL (35.1-46.3); Red Blood Cell Count 4.09 M/mm3 (3.80-5.20); White Blood Cell Count 16.68 K/mm3 (4.00-11.30)
[2024-10-03 05:40] LABS: Bun/Creatinine Ratio 4.9 (12.0-20.0); Calcium, Blood 8.4 mg/dL (8.5-10.1); Creatinine, Blood 0.41 mg/dL (0.40-1.00)
--- NOTE | 2024-10-03 06:20 | NUR ---
SHIFT SUMMARY PATIENT ALERT AND ORINETED X4. PATIENT REPORTS BEING FREQUENTLY ANXIOUS. SHE IS ALSO DYSPNIC UPON EXERTION WITH CONTINUED RIGHT RIB PAIN. PATIENT MEDICATED PER EMAR FOR PAIN AND ANXIETY. PATIENT ON ROOM AIR, SLEEP OXYMETRY STUDY COMPLETED BY RT. VITAL SIGNS STABLE. WILL CONTINUE TO MONITOR. CALL LIGHTI WITHIN REACH.
[2024-10-03 07:40] VITALS: BP 151/69
[2024-10-03] MEDS ORDERED: Losartan Potassium 25 MG Tab PO SCH (09:00)
[2024-10-03] MEDS ORDERED: HYDR1TAB94 PO (09:10)
[2024-10-03] MEDS ORDERED: HUMALOG KW100 UNIT/1 SC (09:12)
[2024-10-03] MEDS ORDERED: LOSA25 PO (09:12)
[2024-10-03] MEDS ORDERED: LEVOFLOXACIN500 M1 PO (09:13)
[2024-10-03] MEDS ORDERED: PROBIOTIC1 EA13 PO (09:13)
[2024-10-03] MEDS ORDERED: DOCU100 PO (09:13)
[2024-10-03] MEDS ORDERED: LIOT5 PO (09:14)
[2024-10-03] MEDS ORDERED: BASAGLAR K100 UNIT/1 SC (09:16)
--- NOTE | 2024-10-03 10:11 | NUR ---
DISCHARGE IV's removed. Diabetes, new medication, and discharge instructions reviewed with pattient and son. All questions answered. Perscriptions sent to pharmacy. Patient discharged home with all belongings and instructions to follow up with PCP within a week.
== END 2024-10-03 09:53 | disposition home or self-care (01) | DRG 871 ==
LOC: ER 14:48 → ERHOLD 21:28 → PCU 21:28
PROVIDERS: Emergency Medicine; Internal Medicine; Student in an Organized Health Care Education/Training Program; ADMIT Hospitalist
DX: A41.9 Sepsis, unspecified organism (principal); J18.1 Lobar pneumonia, unspecified organism; J44.0 Chronic obstructive pulmonary disease with (acute) lower respiratory infection; I10 Essential (primary) hypertension; E11.9 Type 2 diabetes mellitus without complications; G47.33 Obstructive sleep apnea (adult) (pediatric); E03.9 Hypothyroidism, unspecified; G89.29 Other chronic pain; M54.9 Dorsalgia, unspecified; F41.9 Anxiety disorder, unspecified; E66.3 Overweight; M79.7 Fibromyalgia; F32.A Depression, unspecified; Z90.49 Acquired absence of other specified parts of digestive tract; Z90.710 Acquired absence of both cervix and uterus; Z90.89 Acquired absence of other organs; Z87.891 Personal history of nicotine dependence; Z88.1 Allergy status to other antibiotic agents; Z88.0 Allergy status to penicillin; Z88.8 Allergy status to other drugs, medicaments and biological substances; Z79.84 Long term (current) use of oral hypoglycemic drugs; Z79.899 Other long term (current) drug therapy
CPT/HCPCS: 0241U; 36415; 71045; 71260; 80048; 80053; 81001; 82947; 83036; 83605; 83735; 83880; 84100; 84145; 84439; 84443; 84481; 84484; 85025; 85027; 85379; 85610; 85730; 87449; 93005; 93010; 94640; 94664; 94762; 96365; 96375; 99285-25; A9270; J0696; J1650; J1815; J1885; J2270; J2405; J3475; J7030; J7120; Q9967

== ENCOUNTER 2024-10-26 20:00 | Emergency (ER) | payer OTHER ==
[~2024-10-26] VITALS: Ht 154.9 cm; Wt 70.3 kg
[~2024-10-26 20:00] MED LIST changes: +ACET500 PO; +BASAGLAR K100 UNIT/1 SC; +HUMALOG KW100 UNIT/1 SC; +HYDR1TAB94 PO; +LEVOFLOXACIN500 M1 PO; +LIOT5 PO; +LOSA25 PO; +PROBIOTIC1 EA13 PO
[2024-10-26 20:50] LABS: BASOPHILS ABSOLUTE AUTO 0.06 K/mm3 (0.00-0.23); BASOPHILS PERCENT AUTO 0 % (0-2); EOSINOPHILS ABSOLUTE AUTO 0.48 K/mm3 (0.00-0.68); EOSINOPHILS PERCENT AUTO 3 % (0-6); Hematocrit 42.2 % (33.0-51.0); IMMATURE GRAN ABSOLUTE AUTO 0.05 K/mm3 (0.00-0.10); IMMATURE GRAN PERCENT AUTO 0 % (0-1); LYMPHOCYTES ABSOLUTE AUTO 3.36 K/mm3 (0.84-5.20); LYMPHOCYTES PERCENT AUTO 21 % (21-46); MONOCYTES ABSOLUTE AUTO 1.02 K/mm3 (0.16-1.47); MONOCYTES PERCENT AUTO 6 % (4-13); Mean Corpuscular HGB 25.8 pg (26.0-34.0); Mean Corpuscular HGB Conc 28.4 g/dL (31.5-36.5); Mean Corpuscular Volume 91 fL (80-100); Mean Platelet Volume 9.9 fL (9.1-12.4); NEUTROPHILS ABSOLUTE AUTO 10.99 K/mm3 (1.96-9.15); NEUTROPHILS PERCENT AUTO 69 % (41-73); Platelet Count 319 K/mm3 (150-400); RDW Coefficient Variation 16.2 % (11.7-14.2); RDW Standard Deviation 54.2 fL (35.1-46.3); Red Blood Cell Count 4.66 M/mm3 (3.80-5.20); White Blood Cell Count 15.96 K/mm3 (4.00-11.30)
[2024-10-26 21:11] LABS: Albumin, Blood 3.4 g/dL (3.4-5.0); Albumin/Globulin Ratio 0.8 (0.8-1.8); Bilirubin, Total 0.4 mg/dL (0.1-1.0); Globulin, Blood 4.3 g/dL (2.2-4.0); Potassium, Blood 4.2 mmol/L (3.5-5.5); Total Protein, Blood 7.7 g/dL (6.4-8.2)
[2024-10-26] MEDS ORDERED: Albuterol 2.5 MG/3 ML VIAL INH SCH (22:55)
[2024-10-26] MEDS ORDERED: PredniSONE 20 MG Tab PO ONE (22:55)
[2024-10-26] MEDS ORDERED: Ipratropium/Albuterol SulF 2.5-0.5MG/3 ML Amp INH ONE (22:55)
[2024-10-27 01:15] VITALS: BP 126/49
[2024-10-27 01:40] LABS: CORONAVIRUS COVID-19 AG Negative (NEGATIVE); INFLUENZA A AG Negative (NEGATIVE); INFLUENZA B AG Negative (NEGATIVE)
[2024-10-27] MEDS ORDERED: PRED20 PO (01:51)
[2024-10-27] MEDS ORDERED: IPRAT-ALBUT 0.5-3 ML INH (01:51)
== END 2024-10-27 02:24 | disposition home or self-care (01) ==
LOC: ER 20:00
PROVIDERS: Student in an Organized Health Care Education/Training Program
DX: J44.89 Other specified chronic obstructive pulmonary disease (principal); J18.9 Pneumonia, unspecified organism; E11.9 Type 2 diabetes mellitus without complications; I10 Essential (primary) hypertension; G47.33 Obstructive sleep apnea (adult) (pediatric); Z79.4 Long term (current) use of insulin; Z79.899 Other long term (current) drug therapy; Z88.0 Allergy status to penicillin; Z88.1 Allergy status to other antibiotic agents; Z88.8 Allergy status to other drugs, medicaments and biological substances
CPT/HCPCS: 71045; 80053; 83690; 84484; 85025; 87428-QW; 93005; 93010; 94644; 94664; 99284-25; J7512

== ENCOUNTER 2025-03-21 17:04 | Inpatient (IN) | payer OTHER ==
[~2025-03-21] VITALS: Ht 154.9 cm; Wt 65.8 kg
[2025-03-21 17:50] LABS: BASOPHILS ABSOLUTE AUTO 0.07 K/mm3 (0.00-0.23); BASOPHILS PERCENT AUTO 0 % (0-2); EOSINOPHILS ABSOLUTE AUTO 0.13 K/mm3 (0.00-0.68); EOSINOPHILS PERCENT AUTO 1 % (0-6); Hematocrit 37.2 % (33.0-51.0); Hemoglobin 11.2 g/dL (11.5-16.0); IMMATURE GRAN ABSOLUTE AUTO 0.06 K/mm3 (0.00-0.10); IMMATURE GRAN PERCENT AUTO 0 % (0-1); LYMPHOCYTES ABSOLUTE AUTO 2.99 K/mm3 (0.84-5.20); LYMPHOCYTES PERCENT AUTO 17 % (21-46); MONOCYTES ABSOLUTE AUTO 1.17 K/mm3 (0.16-1.47); MONOCYTES PERCENT AUTO 7 % (4-13); Mean Corpuscular HGB 23.9 pg (26.0-34.0); Mean Corpuscular HGB Conc 30.1 g/dL (31.5-36.5); Mean Corpuscular Volume 79 fL (80-100); Mean Platelet Volume 9.3 fL (9.1-12.4); NEUTROPHILS ABSOLUTE AUTO 12.74 K/mm3 (1.96-9.15); NEUTROPHILS PERCENT AUTO 74 % (41-73); Platelet Count 483 K/mm3 (150-400); RDW Coefficient Variation 15.9 % (11.7-14.2); RDW Standard Deviation 45.4 fL (35.1-46.3); Red Blood Cell Count 4.69 M/mm3 (3.80-5.20); White Blood Cell Count 17.16 K/mm3 (4.00-11.30)
[2025-03-21] MEDS ORDERED: NS 1,000 ML IV SCH (17:55)
[2025-03-21 18:04] LABS: Base Excess Venous 5.9 mmol/L; PCO2 Venous 46.9 mmHg (38-42); pH Blood Venous 7.42 (7.34-7.37)
[2025-03-21 18:52] LABS: Albumin, Blood 2.8 g/dL (3.4-5.0); Albumin/Globulin Ratio 0.6 (0.8-1.8); Beta-hydroxybutyrate 3.3 mg/dL (0.2-2.8); Bilirubin, Total 0.5 mg/dL (0.1-1.0); Bun/Creatinine Ratio 22.2 (12.0-20.0); Calcium, Blood 6.8 mg/dL (8.5-10.1); Creatinine, Blood 0.86 mg/dL (0.40-1.00); Globulin, Blood 4.5 g/dL (2.2-4.0); Total Protein, Blood 7.3 g/dL (6.4-8.2)
[2025-03-21 19:16] LABS: Influenza A, PCR NEGATIVE (NEGATIVE); Influenza B, PCR NEGATIVE (NEGATIVE); Resp Syncytial Virus, PCR NEGATIVE (NEGATIVE); SARS-Cov-2 (COVID-19) PCR, MMC NEGATIVE (NEGATIVE)
[2025-03-21 19:37] LABS: Magnesium, Blood 1.7 mg/dL (1.6-2.4)
[2025-03-21] MEDS ORDERED: CefTRIAXone Sodium 1,000 MG in NS 100 ML IV ONE (20:45)
[2025-03-21] MEDS ORDERED: Ipratropium/Albuterol SulF 2.5-0.5MG/3 ML Amp INH PRN (22:25)
[2025-03-21] MEDS ORDERED: Ondansetron HCl 2 MG / ML 2ML Vial IV PRN (22:25)
[2025-03-21] MEDS ORDERED: Enoxaparin 40 MG/0.4 ML SYR SC SCH (23:00)
[2025-03-21] MEDS ORDERED: Furosemide 10 MG/ML 4ML Vial IV SCH (23:00)
[2025-03-21] MEDS ORDERED: LevoFLOXacin 750 MG/D5W 150ML 150 ML IV SCH (23:30)
[2025-03-22] VITALS (8 sets, daily range): BP systolic 102–136; BP diastolic 55–94
[2025-03-22] MEDS ORDERED: MethylPREDNISolone Sod Succ 125 MG Vial IV SCH
[2025-03-22] MEDS ORDERED: METF500 PO (02:21)
[2025-03-22] MEDS ORDERED: Acetaminophen 325 MG TABLET PO PRN (02:30)
[2025-03-22] MEDS ORDERED: JARDIANCE10 MG PO (02:31)
[2025-03-22] MEDS ORDERED: Cymbalta20 MG PO (02:31)
[2025-03-22] MEDS ORDERED: Cyclobenzaprine5 MG (02:32)
[2025-03-22 02:54] LABS: Source, Urine Foley catheter
[2025-03-22 03:08] LABS: Bilirubin, Urine Neg (Neg); Blood, Urine 1+ (Neg); Color, Urine Amber (P-Yellow); Glucose Qualitative, Urine 2+ (Neg); Ketones, Urine Neg (Neg); Leukocyte Esterase, Urine Neg (Neg); Nitrite, Urine Neg (Neg); Protein, Urine 2+ (Neg); Urobilinogen, Urine NORM (Normal)
[2025-03-22 03:22] LABS: Appearance, Urine Clear (Clear)
[2025-03-22 03:23] LABS: Bacteria Few /hpf; Red Blood Cells, Urine 0-2 /hpf (0-2); Squamous Epithelial Cells Few /hpf (Few); White Blood Cells, Urine 0-2 /hpf (0-5)
[2025-03-22] MEDS ORDERED: Miconazole Nitrate 2% 85 GM PWD TOP SCH (03:30)
--- NOTE | 2025-03-22 04:51 | NUR ---
SHIFT SUMMARY PATIENT IS DOING MUCH BETTER THAN WHEN SHE FIRST ARRIVED FROM THE ED. HER VITAL SIGNS ARE STABLE AT THIS TIME. TMAX WAS 102.3 AND HR WAS 108. MD CALLED AND TYLENOL WAS ADMINISTERED. PATIENT IS ORIENTED X4. LUNG SOUNDS ARE COARSE AND SHE HAS A MOIST COUGH. PATIENT WAS ALSO STRAIGHT-CATHED FOR 720 ML OF URINE. PATIENT APPEARS TO BE RESTING COMFORTABLY AT THIS TIME. SHE HAS HER CALL LIGHT WITHIN REACH AND HER BED ALARM IS SET. SAFETY PRECAUTIONS ARE BEING MAINTAINED.
[2025-03-22 05:13] LABS: BASOPHILS ABSOLUTE AUTO 0.06 K/mm3 (0.00-0.23); BASOPHILS PERCENT AUTO 0 % (0-2); EOSINOPHILS ABSOLUTE AUTO 0.02 K/mm3 (0.00-0.68); EOSINOPHILS PERCENT AUTO 0 % (0-6); Hematocrit 36.2 % (33.0-51.0); IMMATURE GRAN ABSOLUTE AUTO 0.07 K/mm3 (0.00-0.10); IMMATURE GRAN PERCENT AUTO 1 % (0-1); LYMPHOCYTES ABSOLUTE AUTO 1.13 K/mm3 (0.84-5.20); LYMPHOCYTES PERCENT AUTO 8 % (21-46); MONOCYTES ABSOLUTE AUTO 0.42 K/mm3 (0.16-1.47); MONOCYTES PERCENT AUTO 3 % (4-13); Mean Corpuscular HGB 24.4 pg (26.0-34.0); Mean Corpuscular HGB Conc 30.4 g/dL (31.5-36.5); Mean Corpuscular Volume 80 fL (80-100); Mean Platelet Volume 9.5 fL (9.1-12.4); NEUTROPHILS PERCENT AUTO 89 % (41-73); Platelet Count 433 K/mm3 (150-400); RDW Coefficient Variation 15.7 % (11.7-14.2); Red Blood Cell Count 4.51 M/mm3 (3.80-5.20)
[2025-03-22 05:44] LABS: Albumin, Blood 2.5 g/dL (3.4-5.0); Albumin/Globulin Ratio 0.5 (0.8-1.8); Bilirubin, Total 0.3 mg/dL (0.1-1.0); Bun/Creatinine Ratio 24.1 (12.0-20.0); Calcium, Blood 9.3 mg/dL (8.5-10.1); Creatinine, Blood 0.7 mg/dL (0.40-1.00); Globulin, Blood 4.8 g/dL (2.2-4.0); Potassium, Blood 4.7 mmol/L (3.5-5.5); Total Protein, Blood 7.3 g/dL (6.4-8.2)
[2025-03-22 13:05] LABS: Thyroid Stimulating Hormone 0.639 uIU/mL (0.360-4.800); Triiodothyronine, Free 1.59 pg/mL (2.18-3.98)
[2025-03-22] MEDS ORDERED: Insulin Human Lispro 100 Units/ML 3ML Syringe SC SCH (16:30)
--- NOTE | 2025-03-22 16:45 | NUR ---
SHIFT SUMMARY: PATIENT A&OX4, PLEASANT AND COOPERATIVE c CARE, VERBALIZES NEEDS, AND CALLS APPROPRIATELY. PATIENT REPORTED THIS AM ABOUT HAVING NEUROPATHY FOR A COUPLE YEARS TO LOWER EXTREMITY. PATIENT ON TELE RUNNING SR IN 70'S-80'S, DENIES ANY CHEST PAIN/PRESSURE. PATIENT STARTED ON 2 LITERS OF 02 VIA NC, WAS TITRATED TO 1 LITER BECAUSE OF STAYING AT 99-100%. PATIENT SATTED FOR REST OF SHIFT AROUND 98-99% ON 1 LITER OF NC. PATIENT DENIES ANY SOB, DIZZINESS, OR HEADACHES. PATIENTS DIET WAS CHANGED TO CONSISTENT CARB AND PATIENT TOLERATED IT WELL. CONTINENT OF BOWEL AND INCONT OF BLADDER. PATIENT DENIES ANY PAIN/DISCOMOFRT, N/V IN ABDOMEN. PATIENT WAS BLADDER SCANNED T/O THIS SHIFT AND ONLY HAD AT MAX 196 MLS. PATIENT AMBULATED TO [facility] c 1 PER ASSIST c WALKER. PATIENT RECIEVED SCHEDULED AND PRN MEDS PER EMAR. PATIENT REPORTED HAVING SOME PAIN T/O THE BODY AND RECIEVED TYLENOL FOR IT. IV L AC SALINE LOCKED. PATIENT LEFT ROOM AT 1645 VIA WHEELCHAIR BY MBA INTERNSHIP, ALL BELONGINGS LEFT WITH THE PATIENT. PRIMARY RN SPOKE TO MALORIE (DAUGHTER) ABOUT TRANSFER PATIENT TO ROOM 357.
--- NOTE | 2025-03-22 16:45 | NUR ---
TELEPHONE REPORT NOTE: PATIENT HAS TRANSFER ORDER IN HOUSE TO MEDICAL FLOOR WITHOUT TELEMETRY. TR GIVEN TO MEDICAL RN, GOLD AT 1631 REGARDING PATIENT CONDITION AND PLAN OF CARE. GOLD VERBALIZED UNDERSTANDING AND NO FURTHER QUESTIONS.
--- NOTE | 2025-03-22 18:28 | NUR ---
ASSUMPTION OF CARE CLIENT TRANSFERRED FROM PCU. FULL CODE. ADMIT DIAGNOSIS IN PNUEMONIA. A&OX4. CLIENT HAD RECENT FALLS WITH ABRASION TO FOREHEAD AND RIGHT FOREARM A RESULT. 1 PERSON ASSIST TO BSC. BASELINE OF 2L OF OXYGEN AT HOME. CURRENTLY AT 1L NEEDED. IV ACCESS IN LEFT UPPER ARM. DIET IS CONSISTENT CARB. BED IN LOW POSITION AND CALL LIGHT IS WITHIN REACH
[2025-03-22] MEDS ORDERED: NS 250 ML IV PRN (21:15)
[2025-03-23 04:18] VITALS: BP 126/72
--- NOTE | 2025-03-23 05:05 | NUR ---
SHIFT SUMMARY PT ALERT ORIENTED ABLE TO CALL APPROPRIATELY. AMBULATES WITH SBA TO BATHROOM. SHE URINATED WELL LAST NIGHT WITH NO PROBLEMS. C/O GENERAL PAIN MEDICATED WITH TYLENOL WITH GOOD PAIN RELIEF. SHE HAS HAD MANY FALLS AT HOME AND HAS A ABRASION TO HER FOREHEAD FROM ONE OF THE FALLS. FS DONE AC AND HS WAS 301 AND SHE RECEIVED COVERAGE. REMAINS ON LEVAQUIN QDAY FOR PNEUMONIA. CONTINUES WITH A PRODUCTIVE COUGH WITH CLEAR SPUTUM. RESTING IN BED AT THIS TIME WITH CALL LIGHT IN REACH
[2025-03-23 05:07] LABS: Bicarbonate Venous 27.7 mmol/L (24.0-30.0); PCO2 Venous 49.8 mmHg (38-42); pH Blood Venous 7.39 (7.34-7.37)
[2025-03-23 05:29] LABS: BASOPHILS ABSOLUTE AUTO 0.02 K/mm3 (0.00-0.23); BASOPHILS PERCENT AUTO 0 % (0-2); EOSINOPHILS PERCENT AUTO 0 % (0-6); Hematocrit 33.7 % (33.0-51.0); Hemoglobin 10.4 g/dL (11.5-16.0); IMMATURE GRAN ABSOLUTE AUTO 0.07 K/mm3 (0.00-0.10); IMMATURE GRAN PERCENT AUTO 1 % (0-1); LYMPHOCYTES ABSOLUTE AUTO 1.35 K/mm3 (0.84-5.20); LYMPHOCYTES PERCENT AUTO 9 % (21-46); MONOCYTES ABSOLUTE AUTO 0.26 K/mm3 (0.16-1.47); MONOCYTES PERCENT AUTO 2 % (4-13); Mean Corpuscular HGB 24.3 pg (26.0-34.0); Mean Corpuscular HGB Conc 30.9 g/dL (31.5-36.5); Mean Corpuscular Volume 79 fL (80-100); Mean Platelet Volume 9.7 fL (9.1-12.4); NEUTROPHILS PERCENT AUTO 88 % (41-73); Platelet Count 467 K/mm3 (150-400); RDW Coefficient Variation 15.5 % (11.7-14.2); RDW Standard Deviation 43.8 fL (35.1-46.3); Red Blood Cell Count 4.28 M/mm3 (3.80-5.20)
[2025-03-23 05:51] LABS: Bun/Creatinine Ratio 37.6 (12.0-20.0); Calcium, Blood 9.3 mg/dL (8.5-10.1); Creatinine, Blood 0.82 mg/dL (0.40-1.00); Potassium, Blood 4.1 mmol/L (3.5-5.5)
[2025-03-23 07:37] VITALS: BP 130/65
[2025-03-23] MEDS ORDERED: PredniSONE 20 MG Tab PO SCH (09:00)
[2025-03-23] MEDS ORDERED: LORazepam 0.5 MG Tab PO ONE (09:55)
[2025-03-23] MEDS ORDERED: Insulin Human Lispro 100 Units/ML 3ML Syringe SC SCH (11:30)
[2025-03-23 15:15] VITALS: BP 123/61
[2025-03-23] MEDS ORDERED: LORazepam 0.5 MG Tab PO SCH (16:00)
--- NOTE | 2025-03-23 18:45 | NUR ---
no changes for pt during shift. no c/o pain
[2025-03-23 19:11] VITALS: BP 119/90
[2025-03-23] MEDS ORDERED: Insulin Glargine-Yfgn 100 Unit/mL 3 ML SYR SC SCH (21:00)
--- NOTE | 2025-03-24 03:43 | NUR ---
Shift Summary AOx4. Calling appropriate for needs. Nonproductive cough, anxiety, and lower back pain from laying in bed interferring with sleep. Reports 5-04/02 headache improved with tylenol. Snack provided per patient request. Ambulated in hallway x 1p FWW x 50 ft. IV replaced via US by Yg Sewell, interlocking machine operator. Voiding well. VSS. Call light nearby.
[2025-03-24 04:02] VITALS: BP 137/66
[2025-03-24] MEDS ORDERED: Benzonatate 100 MG Cap PO PRN (04:40)
--- NOTE | 2025-03-24 04:40 | NUR ---
Tessalon Order from Dr. Christian Patient with nonproductive dry cough that is keeping patient up. States cough has been ongoing and disrupting sleep. Discussed w/ Dr. Christian, received a T.O. for 200mg tessalon lauirta QID as needed for cough.
[2025-03-24 04:54] LABS: BASOPHILS ABSOLUTE AUTO 0.01 K/mm3 (0.00-0.23); BASOPHILS PERCENT AUTO 0 % (0-2); EOSINOPHILS PERCENT AUTO 0 % (0-6); Hematocrit 32.9 % (33.0-51.0); Hemoglobin 10.3 g/dL (11.5-16.0); IMMATURE GRAN ABSOLUTE AUTO 0.07 K/mm3 (0.00-0.10); IMMATURE GRAN PERCENT AUTO 1 % (0-1); LYMPHOCYTES ABSOLUTE AUTO 1.55 K/mm3 (0.84-5.20); LYMPHOCYTES PERCENT AUTO 10 % (21-46); MONOCYTES ABSOLUTE AUTO 0.58 K/mm3 (0.16-1.47); MONOCYTES PERCENT AUTO 4 % (4-13); Mean Corpuscular HGB Conc 31.3 g/dL (31.5-36.5); Mean Corpuscular Volume 77 fL (80-100); Mean Platelet Volume 9.4 fL (9.1-12.4); NEUTROPHILS ABSOLUTE AUTO 13.31 K/mm3 (1.96-9.15); NEUTROPHILS PERCENT AUTO 86 % (41-73); Platelet Count 483 K/mm3 (150-400); RDW Coefficient Variation 15.8 % (11.7-14.2); RDW Standard Deviation 43.1 fL (35.1-46.3); Red Blood Cell Count 4.29 M/mm3 (3.80-5.20); White Blood Cell Count 15.52 K/mm3 (4.00-11.30)
[2025-03-24 05:15] LABS: Bun/Creatinine Ratio 39.8 (12.0-20.0); Creatinine, Blood 0.88 mg/dL (0.40-1.00); Potassium, Blood 3.9 mmol/L (3.5-5.5)
[2025-03-24 07:15] VITALS: BP 130/77
[2025-03-24] MEDS ORDERED: Tessalon200 MG PO (11:21)
[2025-03-24] MEDS ORDERED: Prednisone10 MG PO (11:22)
[2025-03-24] MEDS ORDERED: LEVOFLOXACIN750 MG PO (11:22)
--- NOTE | 2025-03-24 12:20 | NUR ---
PT WAS DISCHARGED WITH INSTRUCTIONS. PT HAD NO QUESTIONS OR CONCERNS. ALL PIVS REMOVED
== END 2025-03-24 12:13 | disposition home or self-care (01) | DRG 871 ==
LOC: ER 17:04 → ERHOLD 22:36 → PCU 22:36 → MEDS 03-22 17:46
PROVIDERS: Internal Medicine; Physician Assistant; Student in an Organized Health Care Education/Training Program; ADMIT Internal Medicine
DX: A41.9 Sepsis, unspecified organism (principal); J18.9 Pneumonia, unspecified organism; J96.01 Acute respiratory failure with hypoxia; J96.02 Acute respiratory failure with hypercapnia; J44.1 Chronic obstructive pulmonary disease with (acute) exacerbation; J44.0 Chronic obstructive pulmonary disease with (acute) lower respiratory infection; I27.81 Cor pulmonale (chronic); I11.0 Hypertensive heart disease with heart failure; I50.9 Heart failure, unspecified; E11.9 Type 2 diabetes mellitus without complications; E83.51 Hypocalcemia; D64.9 Anemia, unspecified; M54.9 Dorsalgia, unspecified; G89.29 Other chronic pain; E03.9 Hypothyroidism, unspecified; M79.7 Fibromyalgia; F41.9 Anxiety disorder, unspecified; F32.A Depression, unspecified; G47.33 Obstructive sleep apnea (adult) (pediatric); Z88.8 Allergy status to other drugs, medicaments and biological substances; Z88.1 Allergy status to other antibiotic agents; Z88.0 Allergy status to penicillin; Z91.048 Other nonmedicinal substance allergy status; Z79.51 Long term (current) use of inhaled steroids; Z79.899 Other long term (current) drug therapy; Z79.891 Long term (current) use of opiate analgesic; Z79.85 Long-term (current) use of injectable non-insulin antidiabetic drugs; Z79.890 Hormone replacement therapy; Z79.52 Long term (current) use of systemic steroids; Z90.49 Acquired absence of other specified parts of digestive tract; Z90.710 Acquired absence of both cervix and uterus; Z98.890 Other specified postprocedural states; Z90.89 Acquired absence of other organs; Z99.89 Dependence on other enabling machines and devices
CPT/HCPCS: 0241U; 36415; 36416; 70450; 71046; 80048; 80053; 81001; 82010; 82803; 82947; 83605; 83735; 83880; 84100; 84439; 84443; 84481; 85025; 93005; 93010; 93306; 94640; 94664; 94760; 96361; 96365; 99285-25; A9270; J0696; J1650; J1815; J1938; J1956; J2919; J7030; J7050; J7512